=== PATIENT | female | born 1995 | race Caucasian/White ===

== ENCOUNTER 2016-06-15 18:42 | Outpatient (CLI) | payer BC ==
[2016-06-15 19:44] LABS: APPEARANCE,URINE CLEAR; BILIRUBIN,URINE NEGATIVE (NEGATIVE); GLUCOSE, URINE NEGATIVE (NEGATIVE); KETONES,URINE NEGATIVE (NEGATIVE); LEUKOCYTE ESTERASE,URINE NEGATIVE (NEGATIVE); NITRITE,URINE NEGATIVE (NEGATIVE); PROTEIN,URINE NEGATIVE (NEGATIVE); URINE SPECIFIC GRAVITY 1.019
[2016-06-15 19:56] LABS: AMNISURE (ROM) NEGATIVE (NEGATIVE)
[2016-06-15 19:59] LABS: URINE BARBITURATES SCREEN NEGATIVE; URINE METHADONE SCREEN NEGATIVE; URINE OPIATES LOW NEGATIVE; URINE PHENCYCLIDINE SCREEN NEGATIVE
--- NOTE | 2016-06-15 20:01 | L&D Flow Sheet ---
LD Flowsheet Datetime Report Generated by CPN: 06/15/2016 20:00 Datetime: 06/15/2016 19:58 I/O Interventions: Clear Liquids Given (Crystal Rudy, RN) Datetime: 06/15/2016 19:50 Uterine Activity Monitor Mode: External; Palpation (Crystal Rudy, RN) Frequency (min): 1 (Crystal Vernon, RN) Quality: Mild (Crystal Vernon, RN) Duration (sec): 50 (Crystal Vernon, RN) Resting Tone (Palpate): Relaxed (Crystal Rudy, RN) Contraction Comments: Pt reports most pain is in her back (Crystal Vernon, RN) Assessment A Monitor Mode: External US (Crystal Rudy, RN) FHR Baseline Rate : 145 (Crystal Rudy, RN) Variability: Moderate 6-25 bpm (Crystal Rudy, RN) Accelerations: 15X15 (Crystal Vernon, RN) Decelerations: None (Crystal Rudy, RN) Datetime: 06/15/2016 19:44 NBP Sys/Yanique/Mean (mmHg): 103 (QS system process) : 59 (QS system process) : 78 (QS system process) Pulse: 96 (QS system process) LaborFlag: OB Triage (QS system process) Datetime: 06/15/2016 19:41 I/O Interventions: Up to BR (Crystal Vernon, RN) Datetime: 06/15/2016 19:36 Pain Pain Scale: 4 (Crystal Rudy, RN) Pain Presence: Intermittent (Crystal Rudy, RN) Pain Type: Sharp; Stabbing; Ache (Crystal Rudy, RN) Pain Location: Abdomen; Back; Perineum (Crystal Vernon, RN) Pain Goal: 1 (Crystal Vernon, RN) Pain Relief Measures: Comfort Measures (Crystal Rudy, RN) Pain Coping: Talking Through Contractions (Crystal Rudy, RN) Vaginal Bleeding: None (Crystal Rudy, RN) Maternal Assessment Level of Consciousness: Fully Conscious (Crystal Rudy, RN) DTR's/Clonus: DTRs 1+; No Clonus (Crystal Rudy, RN) Headache: Denies (Crystal Rudy, RN) Breath Sounds, Left: Clear and Equal (Crystal Rudy, RN) Breath Sounds, Right: Clear and Equal (Crystal Rudy, RN) Nausea/Vomiting: Denies (Crystal Rudy, RN) RUQ Epigastric Pain: Denies (Crystal Rudy, RN) LaborFlag: OB Triage (QS system process) Datetime: 06/15/2016 19:23 Vital Signs Stage of : OB Triage (Shana Hernandez, RN) Vaginal Exam Dilatation (cm): 2.5 (Shana Hernandez RN) Effacement (%): 50 (Shana Hernandez RN) Station: -2 (Shana Hernandez RN) Exam by: Dr. Rodríguez (Shana Hernandez RN) Vaginal Bleeding: None (Shana Hernandez RN) Cervix, Consistency: Soft (Shana Hernandez RN) Cervix, Position: Midposition (Shana Hernandez RN) Provider Reviewed Strip: Yes (Shana Hernandez RN) Strip Reviewed by: Oniel hernandez RN (Shana Hernandez RN) Communication Communication: Provider at Bedside (Crystal Vernon, RN) Provider Notified (Name): Marcos (Crystal Vernon, RN) Notification Reason: Membrane Status (Crystal Vernon, RN) Datetime: 06/15/2016 19:17 Patient Care Patient Position/Activity: Supine (Crystal Rudy, RN)
== END 2016-06-15 21:40 | disposition home or self-care (01) ==
LOC: LC 18:42
PROVIDERS: ATTEND Student in an Organized Health Care Education/Training Program
PROC: 4A1HXCZ Monitoring of Products of Conception, Cardiac Rate, External Approach (ICD-10-PCS; principal; 2016-06-15)
DX: O47.03 False labor before 37 completed weeks of gestation, third trimester (principal); Z3A.36 36 weeks gestation of pregnancy
CPT/HCPCS: 59025; 84112; 81005; 80307; 76815; Q0114

== ENCOUNTER 2016-06-17 04:40 | Outpatient (CLI) | payer BC, MEDICAID ==
--- NOTE | 2016-06-17 04:50 | Non Stress Test Report ---
Non Stress Test Datetime Report Generated by CPN: 06/17/2016 04:50 DEMOGRAPHIC Test Number: 1 EGA NST: 37.4 INDICATION Indication for Study: Ordered by Provider VITAL SIGNS Pulse - NST: 96 RESP - NST: 18 NBPSYS NST: 103 NBPDIA NST: 59 MONITORING Monitor Explained: Monitor Explained; Test Explained; Patient Verbalized Understanding Time on Monitor: 06/15/2016 19:09 Time off Monitor: 06/15/2016 21:30 NST Duration: 141 NST INTERVENTIONS NST Interventions: PO Hydration; Oxytocin Challenge Test Physician Notified NST: Rodríguez BABY A: [id number] BABY A Movement : Present Contraction Frequency : 5-10 FHR Baseline : 130 Accelerations : 15X15 Decelerations : None Variability : Moderate 6-25bpm NST Review: Meets Criteria for Reactive NST NST Review and Verified By : Todd Ramos RN NST Results: Reactive NST REPORT Report Trigger: Send Report
[2016-06-17 05:14] LABS: APPEARANCE,URINE SLIGHTLY-CLOUDY; BILIRUBIN,URINE NEGATIVE (NEGATIVE); GLUCOSE, URINE NEGATIVE (NEGATIVE); KETONES,URINE NEGATIVE (NEGATIVE); LEUKOCYTE ESTERASE,URINE TRACE (NEGATIVE); NITRITE,URINE NEGATIVE (NEGATIVE); PROTEIN,URINE NEGATIVE (NEGATIVE); URINE SPECIFIC GRAVITY 1.012; UROBILINOGEN,URINE NEGATIVE mg/dL (<2.0)
[2016-06-17 05:30] LABS: URINE BARBITURATES SCREEN NEGATIVE; URINE METHADONE SCREEN NEGATIVE; URINE OPIATES LOW NEGATIVE; URINE PHENCYCLIDINE SCREEN NEGATIVE
[2016-06-17] MEDS ORDERED: HYDROXYZINE PAMOATE 50 MG CAPSULE ONE (06:11)
--- NOTE | 2016-06-17 06:26 | Non Stress Test Report ---
Non Stress Test Datetime Report Generated by CPN: 06/17/2016 06:26 DEMOGRAPHIC Test Number: 2 EGA NST: 37.6 INDICATION Indication for Study: Ordered by Provider Indication for Study (NST) Other: LC MONITORING Monitor Explained: Monitor Explained; Test Explained; Patient Verbalized Understanding Time on Monitor: 06/17/2016 05:00 Time off Monitor: 06/17/2016 05:54 NST Duration: 54 NST INTERVENTIONS NST Interventions: PO Hydration; Reposition Patient Physician Notified NST: Dr. Cardoza BABY A Movement : Present Contraction Frequency : 10-10.5 FHR Baseline : 130 Accelerations : 15X15 Decelerations : None Variability : Moderate 6-25bpm NST Review: Meets Criteria for Reactive NST NST Review and Verified By : Jose Roberto Esqueda RN NST Results: Reactive NST REPORT Report Trigger: Send Report
[2016-06-17] MEDS ORDERED: HYDROXYZINE PAMOATE 50 MG CAPSULE PO ONE (06:30)
== END 2016-06-17 06:19 | disposition home or self-care (01) ==
LOC: LC 04:40
PROVIDERS: ATTEND Obstetrics & Gynecology
PROC: 4A1HXCZ Monitoring of Products of Conception, Cardiac Rate, External Approach (ICD-10-PCS; principal; 2016-06-17)
DX: O47.1 False labor at or after 37 completed weeks of gestation (principal); Z3A.37 37 weeks gestation of pregnancy
CPT/HCPCS: 59025; 80307; 81005

== ENCOUNTER 2016-06-17 10:11 | Inpatient (IN) | payer BC, MEDICAID ==
[2016-06-17] MEDS ORDERED: OXYTOCIN/NORMAL SALINE 1,000 ML IV PRN ×2 (10:29→15:57)
[2016-06-17] MEDS ORDERED: RINGERS SOLUTION,LACTATED 300 ML IV ONE (10:29)
[2016-06-17] MEDS ORDERED: RINGERS SOLUTION,LACTATED 1,000 ML IV PRN (10:29)
[2016-06-17] MEDS ORDERED: MISOPROSTOL 0.2 MG TABLET ONE (10:30)
[2016-06-17] MEDS ORDERED: OXYTOCIN/NORMAL SALINE 20 UNIT/1,000 ML RTUINJ ONE (10:30)
[2016-06-17] MEDS ORDERED: LIDOCAINE 1% INJ-PF (10 MG/ML) 30 ML SDV ONE (10:30)
[2016-06-17 10:54] LABS: APPEARANCE,URINE SLIGHTLY-CLOUDY; BILIRUBIN,URINE NEGATIVE (NEGATIVE); GLUCOSE, URINE NEGATIVE (NEGATIVE); KETONES,URINE NEGATIVE (NEGATIVE); LEUKOCYTE ESTERASE,URINE TRACE (NEGATIVE); NITRITE,URINE NEGATIVE (NEGATIVE); PROTEIN,URINE NEGATIVE (NEGATIVE); URINE SPECIFIC GRAVITY 1.017; UROBILINOGEN,URINE NEGATIVE mg/dL (<2.0)
[2016-06-17 10:59] LABS: ABSOLUTE LYMPHOCYTES (AUTO) 1.4 10^3/uL (0.5-4.7); ABSOLUTE MONOCYTES (AUTO) 0.3 10^3/uL (0.1-1.4); ABSOLUTE NEUT (AUTO) 13.8 10^3/uL (1.7-8.2); HEMATOCRIT 30.6 % (36.0-47.0); HEMOGLOBIN 10.4 g/dL (12.0-15.5); HGB HCT DIFFERENCE 0.6; LYMPHOCYTES % (AUTO) 8.7 % (13-45); MEAN CORPUSCULAR HGB CONC 34.1 g/dL (32.0-36.0); MEAN CORPUSCULAR VOLUME 97 fl (80-97); RED BLOOD COUNT 3.16 10^6/uL (3.72-5.28); RED CELL DISTRIBUTION WIDTH 13.6 % (11.5-14.0); SEGMENTED NEUTROPHILS % (AUTO) 89.3 % (42-78); WHITE BLOOD COUNT 15.5 10^3/uL (4.0-10.5)
[2016-06-17 11:19] LABS: URINE BARBITURATES SCREEN NEGATIVE; URINE METHADONE SCREEN NEGATIVE; URINE OPIATES LOW NEGATIVE; URINE PHENCYCLIDINE SCREEN NEGATIVE
[2016-06-17] MEDS ORDERED: FENTANYL/BUPIVACAINE/NS/PF 200 MCG/100 ML RTUINJ EPI ONE (11:53)
[2016-06-17] MEDS ORDERED: BUPIVACAINE HCL 0.25 % INJ/PF (2.5 MG/1 ML) 30 ML VIAL ONE (11:53)
[2016-06-17] MEDS ORDERED: EPHEDRINE SULFATE INJ 50 MG/1 ML AMPULE ONE (11:53)
--- NOTE | 2016-06-17 12:00 | L&D Flow Sheet ---
LD Flowsheet Datetime Report Generated by CPN: 06/17/2016 12:00 Datetime: 06/17/2016 11:30 Monitor Mode: External; Palpation (Oralia Yomi, RNC) Frequency (min): 3-5 (Oralia Yomi, RNC) Quality: Moderate to Strong (Oralia Yomi, RNC) Duration (sec): 50-80 (Oralia Yomi, RNC) Duration Criteria: Less than Two 120 Second Contractions (Oralia Yomi, RNC) Pattern: Normal: <= 5 Contractions in 10 Minutes (Oralia Yomi, RNC) Resting Tone (Palpate): Relaxed (Oralia Yomi, RNC) Monitor Mode: External US (Oralia Yomi, RNC) FHR Baseline Rate : 135 (Oralia Yomi, RNC) Variability: Moderate 6-25 bpm (Oralia Yomi, RNC) Accelerations: 15X15 (Oralia Yomi, RNC) Decelerations: None (Oralia Yomi, RNC) Datetime: 06/17/2016 11:16 Dilatation (cm): 8.0 (Oralia Celaya, KELLYC) Effacement (%): 90 (Oralia Celaya, RNC) Exam by: Emeli Caldwell CNM (Oralia Celaya, C) Membrane Status: Ruptured (Oralia Celaya, RNC) Membranes Rupture Method: Artificial (Oralia Celaya, RNC) Amniotic Fluid Color: Clear (Oralia Celaya, RNC) Amniotic Fluid Amount: Moderate (Oralia Celaya, RNC) Datetime: 06/17/2016 11:00 Monitor Mode: External (Rosa Carballo RN) Frequency (min): 2.5-6 (Rosa Carballo, RN) Quality: Moderate (Rosa Carballo RN) Duration (sec): 60 (Rosa Carballo RN) Resting Tone (Palpate): Relaxed (Rosa Carballo RN) Monitor Mode: External US (Rosa Carballo RN) FHR Baseline Rate : 140 (Rosa Carballo RN) Variability: Moderate 6-25 bpm (Rosa Carballo RN) Accelerations: 15X15 (Rosa Marlatt, RN) Decelerations: None (Rosa Marlatt, RN) Datetime: 06/17/2016 10:30 Monitor Mode: External (Rosa Rhodalatt, RN) Frequency (min): 4.5-5.5 (Rosa Marlatt, RN) Quality: Moderate (Rosa Marlatt, RN) Duration (sec): 50 (Rosa Marlatt, RN) Resting Tone (Palpate): Relaxed (Rosa Rhodalatt, RN) Monitor Mode: External US (Rosa Marlatt, RN) FHR Baseline Rate : 140 (Rosa Marlatt, RN) Variability: Moderate 6-25 bpm (Rosa Marlatt, RN) Accelerations: 15X15 (Rosa Marlatt, RN) Decelerations: None (Rosa Marlatt, RN) Datetime: 06/17/2016 10:15 IV/Blood Work: IV Started; IV Bolus Started; New IV Bag Hung (Alyssa Vazquez RN) Communication: RN at Bedside (Alyssa Vazquez RN) Datetime: 06/17/2016 10:12 NBP Sys/Yanique/Mean (mmHg): 115 (QS system process) : 74 (QS system process) : 90 (QS system process) Pulse: 81 (QS system process) Respirations: 17 (RAMON Bernabe) Pain Scale: 4 (RAMON Bernabe) Pain Presence: Intermittent (RAMON Bernabe) Pain Type: Cramping; Contraction (RAMON Bernabe) Pain Location: Abdomen; Back (RAMON Bernabe) Pain Coping: Talking Through Contractions; Breathing Through Contractions; Requesting Pain Medication or Epidural (RAMON Bernabe) Level of Consciousness: Fully Conscious (RAMON Bernabe) DTR's/Clonus: DTRs 2+; No Clonus (RAMON Bernabe) Headache: Denies (RAMON Bernabe) Breath Sounds, Left: Clear and Equal (RAMON Bernabe) Breath Sounds, Right: Clear and Equal (RAMON Bernabe) Nausea/Vomiting: Denies (RAMON Bernabe) RUQ Epigastric Pain: Denies (RAMON Bernabe) Instructional Method: Verbal; Patient Instructed (RAMON Bernabe) Plan of Care: Plan of Care Discussed; Vaginal Delivery; Labor (RAMON Bernabe) Unit Routine: [facility] to Room; Call Stout; Unit Personnel; Consents Signed; Monitoring; Bathroom Privileges; Routine Time Outs; Medications (RAMON Bernabe) Labor/Induction: Labor Stages; Artificial Rupture of Membranes; Activity (RAMON Bernabe) Pain Management: IV Narcotics; Epidural; Pain Scale/Goals; Comfort Measures (RAMON Bernabe) Medications: IV Narcotics (RAMON Bernabe) LaborFlag: OB Triage (QS system process) Datetime: 06/17/2016 06:16 Antiemetics/Antacids: Vistaril (mg) @ (Annotations: 50) (Mary Osorio RN) Patient Care Comments: Discussed term signs and symptoms with patient and spouse; both verbalized understanding; patient to keep appointment in office today (Mary Osorio RN) Datetime: 06/17/2016 06:03 Communication: RN Reviewed Strip; Provider Orders Received; Report Given to @ Dr. Cardoza (Mary Osorio RN) Communication Comments: Informed Dr. Cardoza of patient's complaint, history, urine results, pain level and FHR/Contractions; orders received for Vistaril 50 mg and discharge home (Mary Osorio RN) Datetime: 06/17/2016 05:45 Monitor Mode: External; Palpation (Mary Field, RN) Frequency (min): 10-10.5 (Mary Field, RN) Quality: Mild/Moderate (Mary Field, RN) Duration (sec): 60-80 (Mary Field, RN) Resting Tone (Palpate): Relaxed (Mary Field, RN) Monitor Mode: External US (Mary Field, RN) FHR Baseline Rate : 130 (Mary Field, RN) Variability: Moderate 6-25 bpm (Mary Field, RN) Accelerations: 15X15 (Mary Field, RN) Decelerations: None (Mary Field, RN) Datetime: 06/17/2016 05:34 NBP Sys/Yanique/Mean (mmHg): 93 (QS system process) : 54 (QS system process) : 68 (QS system process) Pulse: 62 (QS system process) LaborFlag: OB Triage (QS system process) Datetime: 06/17/2016 05:18 Temperature (F): 97.6 (Mary Field, RN) Temperature (C): 36.4 (QS system process) LaborFlag: OB Triage (QS system process) Datetime: 06/17/2016 05:15 Monitor Mode: External; Palpation (Mary Field, RN) Frequency (min): x1 (Mary Field, RN) Quality: Mild/Moderate (Mary Field, RN) Duration (sec): 80 (Mary Field, RN) Resting Tone (Palpate): Relaxed (Mary Field, RN) Monitor Mode: External US (Mary Field, RN) FHR Baseline Rate : 125 (Mary Field, RN) Variability: Moderate 6-25 bpm (Mary Field, RN) Accelerations: 15X15 (Mary Field, RN) Decelerations: None (Mary Field, RN) Datetime: 06/17/2016 05:10 Dilatation (cm): 2.0 (Mary Osorio RN) Effacement (%): 50 (Mary Osorio RN) Station: -2 (Mary Osorio RN) Exam by: KELLY Terrell (Mary Osorio RN) Datetime: 06/17/2016 05:04 Frequency (min): Q4-5 MINUTES (Mary Osorio RN) Pain Scale: 5 (Mary Osorio RN) Pain Presence: Intermittent (Mary Osorio RN) Pain Type: Cramping; Contraction (Mary Osorio RN) Pain Location: Abdomen; Back (Mary Osorio RN) Pain Goal: 0 (Mary Osorio RN) Pain Relief Measures: Comfort Measures (Mary Osorio RN) Pain Coping: Talking Through Contractions; Breathing Through Contractions (Mary Osorio RN) Vaginal Bleeding: None (Mary Osorio RN) Level of Consciousness: Fully Conscious (Mary Osorio RN) DTR's/Clonus: DTRs 2+; No Clonus (Mary Osorio RN) Headache: Denies (Mary Osorio RN) Breath Sounds, Left: Clear and Equal (Mary Osorio RN) Breath Sounds, Right: Clear and Equal (Mayr Osorio RN) Nausea/Vomiting: Denies (aMry Osorio RN) RUQ Epigastric Pain: Denies (Mary Osorio RN) Instructional Method: Verbal; Patient Instructed; Family/Support Person Instructed; Verbalized Understanding (Mary Osorio RN) Unit Routine: [facility] to Room; Call Stout; Bed; Visiting Policy; Waiting Areas; Phone/Cell Phone Use; Unit Personnel; Handwashing; Flu/Illness Precautions; Monitoring; Safety/Fall Risk Prevention; Bathroom Privileges (Mary Osorio RN) LaborFlag: OB Triage (QS system process) Datetime: 06/17/2016 05:03 NBP Sys/Yanique/Mean (mmHg): 109 (QS system process) : 64 (QS system process) : 80 (QS system process) Pulse: 69 (QS system process) LaborFlag: OB Triage (QS system process)
--- NOTE | 2016-06-17 14:00 | L&D Flow Sheet ---
LD Flowsheet Datetime Report Generated by CPN: 06/17/2016 14:00 Datetime: 06/17/2016 13:55 NBP Sys/Yanique/Mean (mmHg): 120 (QS system process) : 68 (QS system process) : 87 (QS system process) Pulse: 91 (QS system process) LaborFlag: OB Triage (QS system process) Datetime: 06/17/2016 13:40 NBP Sys/Yanique/Mean (mmHg): 106 (QS system process) : 67 (QS system process) : 81 (QS system process) Pulse: 93 (QS system process) LaborFlag: OB Triage (QS system process) Datetime: 06/17/2016 13:30 Pitocin (milliunit): Pitocin Started (milliunits) @ 4 (Oralia Yomi, RNC) Datetime: 06/17/2016 13:26 NBP Sys/Yanique/Mean (mmHg): 111 (QS system process) : 60 (QS system process) : 80 (QS system process) Pulse: 108 (QS system process) LaborFlag: OB Triage (QS system process) Datetime: 06/17/2016 13:12 NBP Sys/Yanique/Mean (mmHg): 114 (QS system process) : 53 (QS system process) : 77 (QS system process) Pulse: 93 (QS system process) LaborFlag: OB Triage (QS system process) Datetime: 06/17/2016 13:04 Pushing Position: Pushing with Contractions (Oralia Celaya RN) Datetime: 06/17/2016 13:00 Dilatation (cm): 10.0 (RAMON Bernabe) Effacement (%): 100 (RAMON Bernabe) Station: 2 (RAMON Bernabe) Exam by: Emeli Caldwell CNM (RAMON Bernabe) Datetime: 06/17/2016 12:55 NBP Sys/Yanique/Mean (mmHg): 113 (QS system process) : 67 (QS system process) : 84 (QS system process) Pulse: 87 (QS system process) LaborFlag: OB Triage (QS system process) Datetime: 06/17/2016 12:45 Monitor Mode: External; Palpation (Oralia Yomi, RNC) Frequency (min): 2.5-3 (Oralia Yomi, RNC) Quality: Mild (Oralia Yomi, RNC) Duration (sec): 60-90 (Oralia Yomi, RNC) Duration Criteria: Less than Two 120 Second Contractions (Oralia Yomi, RNC) Pattern: Normal: <= 5 Contractions in 10 Minutes (Oralia Yomi, RNC) Resting Tone (Palpate): Relaxed (Oralia Yomi, RNC) Monitor Mode: External US (Oralia Yomi, RNC) FHR Baseline Rate : 135 (Oralia Yomi, RNC) Variability: Moderate 6-25 bpm (Oralia Yomi, RNC) Accelerations: 15X15 (Oralia Yomi, RNC) Decelerations: None (Oralia Yomi, RNC) Datetime: 06/17/2016 12:40 I/O Interventions: Flynn Cath Inserted (Oralia Yomi, RNC) Datetime: 06/17/2016 12:39 NBP Sys/Yanique/Mean (mmHg): 109 (QS system process) : 67 (QS system process) : 81 (QS system process) Pulse: 78 (QS system process) LaborFlag: OB Triage (QS system process) Datetime: 06/17/2016 12:38 NBP Sys/Yanique/Mean (mmHg): 113 (QS system process) : 67 (QS system process) : 84 (QS system process) Pulse: 87 (QS system process) LaborFlag: OB Triage (QS system process) Datetime: 06/17/2016 12:37 NBP Sys/Yanique/Mean (mmHg): 107 (QS system process) : 63 (QS system process) : 80 (QS system process) Pulse: 96 (QS system process) LaborFlag: OB Triage (QS system process) Datetime: 06/17/2016 12:36 NBP Sys/Yanique/Mean (mmHg): 114 (QS system process) : 77 (QS system process) : 90 (QS system process) Pulse: 93 (QS system process) LaborFlag: OB Triage (QS system process) Datetime: 06/17/2016 12:35 NBP Sys/Yanique/Mean (mmHg): 113 (QS system process) : 68 (QS system process) : 85 (QS system process) Pulse: 97 (QS system process) LaborFlag: OB Triage (QS system process) Datetime: 06/17/2016 12:34 NBP Sys/Yanique/Mean (mmHg): 107 (QS system process) : 61 (QS system process) : 78 (QS system process) Pulse: 87 (QS system process) LaborFlag: OB Triage (QS system process) Datetime: 06/17/2016 12:33 NBP Sys/Yanique/Mean (mmHg): 104 (QS system process) : 60 (QS system process) : 75 (QS system process) Pulse: 88 (QS system process) LaborFlag: OB Triage (QS system process) Datetime: 06/17/2016 12:32 NBP Sys/Yanique/Mean (mmHg): 105 (QS system process) : 60 (QS system process) : 76 (QS system process) Pulse: 82 (QS system process) LaborFlag: OB Triage (QS system process) Datetime: 06/17/2016 12:31 NBP Sys/Yanique/Mean (mmHg): 108 (QS system process) : 63 (QS system process) : 79 (QS system process) Pulse: 82 (QS system process) LaborFlag: OB Triage (QS system process) Datetime: 06/17/2016 12:30 Monitor Mode: External; Palpation (Oralia Celaya RNC) Frequency (min): 3-4 (Oralia Yomi, RNC) Quality: Moderate to Strong (Oralia Oymi, RNC) Duration (sec): 60-90 (Oralia Yomi, RNC) Duration Criteria: Less than Two 120 Second Contractions (Oralia Yomi, RNC) Pattern: Normal: <= 5 Contractions in 10 Minutes (Oralia Yomi, RNC) Resting Tone (Palpate): Relaxed (Oralia Yomi, RNC) Monitor Mode: External US (Oralia Yomi, RNC) FHR Baseline Rate : 135 (Oralia Yomi, RNC) Variability: Moderate 6-25 bpm (Oralia Yomi, RNC) Accelerations: 15X15 (Oralia Yomi, RNC) Decelerations: None (Oralia Yomi, RNC) Datetime: 06/17/2016 12:27 Pulse: 83 (QS system process) SpO2 (%): 100 (QS system process) LaborFlag: OB Triage (QS system process) Datetime: 06/17/2016 12:25 Procedure Verify: Correct Patient Identity; Correct Side and Site are Marked; Accurate Procedure Consent Form; Agreement on Procedure to be Done; Correct Patient Position; Relevant Images and Results are Properly Labeled and Displayed; Addressed Need to Administer Antibiotics or Fluids for Irrigation; Safety Precautions Based on Patient History or Medication Use (RAMON Bernabe) Anesthesia Plans: Epidural (RAMON Bernabe) Datetime: 06/17/2016 12:15 IV/Blood Work: New IV Bag Hung; IV Bag Number @ 3 (RAMON Bernabe) Datetime: 06/17/2016 12:00 Monitor Mode: External; Palpation (RAMON Bernabe) Frequency (min): 5-6 (RAMON Bernabe) Quality: Moderate to Strong (RAMON Bernabe) Duration (sec): 50-80 (RAMON Bernabe) Duration Criteria: Less than Two 120 Second Contractions (RAMON Bernabe) Pattern: Normal: <= 5 Contractions in 10 Minutes (RAMON Bernabe) Resting Tone (Palpate): Relaxed (RAMON Bernabe) Monitor Mode: External US (RAMON Bernabe) FHR Baseline Rate : 135 (RAMON Brenabe) Variability: Moderate 6-25 bpm (RAMON Bernabe) Accelerations: 15X15 (RAMON Bernabe) Decelerations: None (RAMON Bernabe)
[2016-06-17] MEDS ORDERED: PSEUDOEPHEDRINE HCL 30 MG TABLET PO PRN (15:57)
[2016-06-17] MEDS ORDERED: ACETAMINOPHEN 650 MG SUPP.RECT PR PRN (15:57)
[2016-06-17] MEDS ORDERED: NA PHOS,M-B/NA PHOS,DI-BA (ADULT) 133 ML ENEMA PR PRN (15:57)
[2016-06-17] MEDS ORDERED: DIBUCAINE 1% OINTMENT 28 GM TP PRN (15:57)
[2016-06-17] MEDS ORDERED: MAGNESIUM HYDROXIDE SUSP 30 ML UDCUP PO PRN (15:57)
[2016-06-17] MEDS ORDERED: ZOLPIDEM TARTRATE 5 MG TABLET PO PRN (15:57)
[2016-06-17] MEDS ORDERED: PROMETHAZINE HCL 25 MG SUPP.RECT PR PRN (15:57)
[2016-06-17] MEDS ORDERED: MEASLES,MUMPS&RUBELLA VACC/PF 0.5 ML VIAL SUBCUT PRN (15:57)
[2016-06-17] MEDS ORDERED: DIPH/PERTUSS(ACELL)/TETANUS VAC/PF 0.5 ML SYR (>=10YO) IM PRN (15:57)
[2016-06-17] MEDS ORDERED: PROMETHAZINE HCL 25 MG TABLET PO PRN (15:57)
[2016-06-17] MEDS ORDERED: GLYCERIN/WITCH HAZEL LEAF 1 EACH MED..PAD TP PRN (15:57)
[2016-06-17] MEDS ORDERED: BENZOCAINE/MENTHOL AEROSOL SPRAY 56 ML TOP PRN (15:57)
[2016-06-17] MEDS ORDERED: PROMETHAZINE HCL INJ 25 MG/1 ML VIAL IV PRN (15:57)
[2016-06-17] MEDS ORDERED: DIPHENHYDRAMINE HCL 25 MG CAPSULE PO PRN (15:57)
--- NOTE | 2016-06-17 16:37 | Delivery Summary ---
Del Sum A-C Datetime Report Generated by CPN: 06/17/2016 16:37 ADMISSION DATA Chief Complaint: Uterine Contractions Admission Impression: Term, Intrauterine Admit Provider Comments: 21 yo EDc (Annotations: Data stored by CP on behalf of user) DELIVERY PERSONNEL Delivery Doctor:: Addis Caldwell CNM Labor and Delivery Nurse:: Oralia Celaya RN Nursery Nurse:: Negar Muhammad RN Human Capital Consultant/BONE GRINDER: Pita Wooten CNA II MATERNAL INFORMATION Delivery Anesthesia: Epidural Medications After Delivery: Pitocin Bolus-Please Comment; Pitocin Drip 20 Units/1000ml NSS Estimated Blood Loss (ml): 250 Provider Comments: poor maternal effort with pushing pt having a difficult time pushing effectively repositioned to right tilt with hiproll delivery of vfi bulb OA to YAMILA suctioned on perinuem infant to abdomen tactile stimulation elicits spontaneous cry cord clamped cut by mother of pt 3vc placenta delivered in lambert fashion noted small bleeds on sac- placenta to pathology EBL 250cc 1st degree perineal laceration hemostasis achieved LABOR SUMMARY EDC: 07/02/2016 00:00 No. Babies in Womb: 1 Attempted: No Labor Anesthesia: Epidural LABOR INFORMATION Reason for Induction: Not Applicable Onset of Labor: 06/17/2016 06:00 Complete Dilatation: 06/17/2016 13:00 Oxytocin: Augmentation Group B Beta Strep: Negative Antibiotics # of Doses: 0 Steroids Given: None Reason Steroids Not Administered: Not Applicable MEMBRANES Membranes Rupture Method: Artificial Rupture of Membranes: 06/17/2016 11:16 Length of Rupture (hr): 2.28 Amniotic Fluid Color: Clear Amniotic Fluid Amount: Moderate STAGES OF LABOR Stage 1 hr: 7 Stage 1 min: 0 Stage 2 hr: 0 Stage 2 min: 33 Stage 3 hr: 0 Stage 3 min: 3 Total Time in Labor hr: 7 Total Time in Labor min: 36 VAGINAL DELIVERY Episiotomy: None Laceration Extension: First Degree Laceration Type: Perineal Laceration Repair: Yes Laceration Repair Note: repaired in usual fashion under epidural Sponge Count Correct: N/A Sharps Count Correct: N/A CSECTION DELIVERY Primary Indication: N/A Secondary Indication: N/A CSection Incidence: N/A Labor: N/A Elective: N/A CSection Incision: N/A BABY A INFORMATION Infant Delivery Date/Time: 06/17/2016 13:33 Method of Delivery: Vaginal Born in Route : No : N/A Forceps: N/A Vacuum Extraction: N/A Shoulder Dystocia : No PRESENTATION/POSITION BABY A Presentation: Cephalic Cephalic Presentation: Vertex Vertex Position: Left Occipital Anterior Breech Presentation: N/A PLACENTA INFORMATION BABY A Placenta Delivery Time : 06/17/2016 13:36 Placenta Method of Delivery: Spontaneous Placenta Status: Delivered SCORES BABY A Heart Rate 1 min: >100 bpm Resp Effort 1 min: Good Cry Reflex Irritability 1 min: Cough or Sneeze or Pulls Away Muscle Tone 1 min: Active Motion Color 1 min: Blue/Pale Resuscitation Effort 1 min: Tactile Stimulation SCORE 1 MIN: 8 Heart Rate 5 min: >100 bpm Resp Effort 5 min: Good Cry Reflex Irritability 5 min: Cough or Sneeze or Pulls Away Muscle Tone 5 min: Active Motion Color 5 min: Body [place], Extremities Blue Resuscitation Effort 5 min: N/A SCORE 5 MIN: 9 Resuscitation Effort 10 min: N/A INFORMATION BABY A Gestational Age at Delivery: 37.6 Gestational Status: Early Term- 37- 38.6 Weeks Outcome : Liveborn Condition : Stable Infant Sex: Male IDENTIFICATION BABY A Verification Date/Time: 06/17/2016 13:59 ID Band Number: [id number] Mother's Name Verified: Yes Infant RN Verifying : INDRA GARZA RN Additional Verifying Personnel: Hollis TILLMAN RN WEIGHT/LENGTH BABY A Birthweight (gm): 2865 Infant Weight (lb): 6 Infant Weight (oz): 5 Length (in): 19.00 Infant Length (cm): 48.26 CORD INFORMATION BABY A No. Cord Vessels: 3 Nuchal Cord : N/A Cord Blood Taken: Yes-For Eval (Mom's Blood Type - or O+) Infant Suction: Mouth; Nose ASSESSMENT BABY A Infant Complications: None Physical Findings at Delivery: Within Normal Limits Respirations: Appears Normal Skin to Skin: Yes Notched Blade Loader/ALS Called : No Care By: Jose Roberto NAVARRO Transferred To: Remains with Mother BABY B INFORMATION : N/A SIGNATURES Assignment: Jarrett Rachel MD Signature: with User ID: Stephon : with User ID: [email or web address]
[2016-06-17] MEDS: ACETAMINOPHEN 325 MG TABLET PO PRN (17:33)
[2016-06-17] MEDS: DOCUSATE SODIUM 100 MG CAPSULE PO SCH (17:34)
[2016-06-17] MEDS: FERROUS SULFATE 325 MG TABLET PO SCH (17:35)
--- NOTE | 2016-06-17 19:00 | L&D Flow Sheet ---
LD Flowsheet Datetime Report Generated by CPN: 06/17/2016 19:00 Datetime: 06/17/2016 15:40 NBP Sys/Yanique/Mean (mmHg): 111 (QS system process) : 58 (QS system process) : 78 (QS system process) Pulse: 78 (QS system process) Datetime: 06/17/2016 15:25 NBP Sys/Yanique/Mean (mmHg): 115 (QS system process) : 64 (QS system process) : 82 (QS system process) Pulse: 96 (QS system process) Datetime: 06/17/2016 15:10 Stage of : Recovery (Oralia Yomi, RNC) NBP Sys/Yanique/Mean (mmHg): 108 (QS system process) : 64 (QS system process) : 80 (QS system process) Pulse: 93 (QS system process) Respirations: 17 (Oralia Yomi, RNC) Pain Scale: 0 (Oralia Yomi, RNC) Datetime: 06/17/2016 14:55 Stage of : Recovery (Oralia Yomi, RNC) NBP Sys/Yanique/Mean (mmHg): 113 (QS system process) : 67 (QS system process) : 85 (QS system process) Pulse: 100 (QS system process) Respirations: 16 (Oralia Yomi, RNC) Pain Scale: 0 (Oralia Yomi, RNC) Datetime: 06/17/2016 14:40 Stage of : Recovery (Oralia Yomi, RNC) NBP Sys/Yanique/Mean (mmHg): 112 (QS system process) : 56 (QS system process) : 76 (QS system process) Pulse: 69 (QS system process) Respirations: 17 (Oralia Yomi, RNC) Pain Scale: 0 (Orlaia Yomi, RNC) Datetime: 06/17/2016 14:10 Stage of : Recovery (Oralia Yomi, RNC) NBP Sys/Yanique/Mean (mmHg): 110 (QS system process) : 66 (QS system process) : 82 (QS system process) Pulse: 76 (QS system process) Respirations: 16 (Oralia Yomi, RNC) Pain Scale: 0 (Oralia Yomi, RNC) Datetime: 06/17/2016 13:55 Stage of : Recovery (Oralia Celaya, RNC) NBP Sys/Yanique/Mean (mmHg): 120 (QS system process) : 68 (QS system process) : 87 (QS system process) Pulse: 91 (QS system process) Respirations: 16 (Oralia Yomi, RNC) Pain Scale: 0 (Oralia Yomi, RNC) Datetime: 06/17/2016 13:40 Stage of : Recovery (Oralia Celaya, RNC) NBP Sys/Yanique/Mean (mmHg): 106 (QS system process) : 67 (QS system process) : 81 (QS system process) Pulse: 93 (QS system process) Respirations: 17 (Oralia Yomi, RNC) Temperature (F): 98.0 (Oralia Yomi, RNC) Temperature (C): 36.7 (QS system process) Temperature Route: Oral (Oralia Yomi, RNC) Pain Scale: 0 (Oralia Yomi, RNC) Datetime: 06/17/2016 13:30 Monitor Mode: External; Palpation (Oralia Yomi, RNC) Frequency (min): 2-2.5 (Oralia Yomi, RNC) Quality: Moderate to Strong (Oralia Yomi, RNC) Duration (sec): 90-120 (Oralia Yomi, RNC) Duration Criteria: Less than Two 120 Second Contractions (Oralia Yomi, RNC) Pattern: Normal: <= 5 Contractions in 10 Minutes (Oralia Yomi, RNC) Resting Tone (Palpate): Relaxed (Oralia Yomi, RNC) Monitor Mode: External US (Oralia Yomi, RNC) FHR Baseline Rate : 135 (Oralia Yomi, RNC) Variability: Moderate 6-25 bpm (Oralia Yomi, RNC) Accelerations: 15X15 (Oralia Yomi, RNC) Decelerations: None (Oralia Yomi, RNC) Pitocin (milliunit): Pitocin Started (milliunits) @ 4 (Oralia Yomi, RNC) Datetime: 06/17/2016 13:26 NBP Sys/Yanique/Mean (mmHg): 111 (QS system process) : 60 (QS system process) : 80 (QS system process) Pulse: 108 (QS system process) LaborFlag: OB Triage (QS system process) Datetime: 06/17/2016 13:15 Monitor Mode: External; Palpation (Oralia Yomi, RNC) Frequency (min): 2.5-4 (Oralia Yomi, RNC) Quality: Moderate to Strong (Oralia Yomi, RNC) Duration (sec): 60-90 (Oralia Yomi, RNC) Duration Criteria: Less than Two 120 Second Contractions (Oralia Yomi, RNC) Pattern: Normal: <= 5 Contractions in 10 Minutes (Oralia Yomi, RNC) Resting Tone (Palpate): Relaxed (Oralia Yomi, RNC) Monitor Mode: External US (Oralia Yomi, RNC) FHR Baseline Rate : 140 (Oralia Yomi, RNC) Variability: Moderate 6-25 bpm (Oralia Yomi, RNC) Accelerations: 15X15 (Oralia Yomi, RNC) Decelerations: None (Oralia Yomi, RNC) Pushing Position: Pushing with Contractions (Oralia Yomi, RNC) Pushing Progress: Descent with Pushing (Oralia Yomi, RNC) Datetime: 06/17/2016 13:12 NBP Sys/Yanique/Mean (mmHg): 114 (QS system process) : 53 (QS system process) : 77 (QS system process) Pulse: 93 (QS system process) LaborFlag: OB Triage (QS system process) Datetime: 06/17/2016 13:04 Pushing Position: Pushing with Contractions (Oralia Celaya, RNC) Datetime: 06/17/2016 13:00 Monitor Mode: External; Palpation (Oralia Celaya, RNC) Frequency (min): 2.5-4 (Oralia Celaya, RNC) Quality: Moderate to Strong (Oralia Yomi, RNC) Duration (sec): 60-90 (Oralia Yomi, RNC) Duration Criteria: Less than Two 120 Second Contractions (Oralia Celaya, RNC) Pattern: Normal: <= 5 Contractions in 10 Minutes (Oralia Yomi, RNC) Resting Tone (Palpate): Relaxed (Oralia Yomi, RNC) Monitor Mode: External US (Oralia Celaya, RNC) FHR Baseline Rate : 135 (Oralia Celaya, RNC) Variability: Moderate 6-25 bpm (Oraliamichael Celaya, RNC) Accelerations: None (Oraliamichael Celaya, RNC) Decelerations: None (Oralia Celaya, RNC) Dilatation (cm): 10.0 (Oralia Celaya, RNC) Effacement (%): 100 (Oralia Yomi [facility]) Station: 2 (Oralia Yomi [facility]) Exam by: A Javi PAIZ (Oralia Celaya [facility]) Datetime: 06/17/2016 12:59 Communication: Provider at Bedside (Oraliasonny Celaya [facility]) Communication Comments: Emeli Caldwell CNM at (Oralia Celaya [facility]) Datetime: 06/17/2016 12:55 NBP Sys/Yanique/Mean (mmHg): 113 (QS system process) : 67 (QS system process) : 84 (QS system process) Pulse: 87 (QS system process) LaborFlag: OB Triage (QS system process) Datetime: 06/17/2016 12:45 Monitor Mode: External; Palpation (Oralia Yomi, RNC) Frequency (min): 2.5-3 (Oralia Yomi, RNC) Quality: Mild (Oralia Yomi, RNC) Duration (sec): 60-90 (Oralia Yomi, RNC) Duration Criteria: Less than Two 120 Second Contractions (Oralia Yomi, RNC) Pattern: Normal: <= 5 Contractions in 10 Minutes (Oralia Yomi, RNC) Resting Tone (Palpate): Relaxed (Oralia Yomi, RNC) Monitor Mode: External US (Oralia Yomi, RNC) FHR Baseline Rate : 135 (Oralia Yomi, RNC) Variability: Moderate 6-25 bpm (Oralia Yomi, RNC) Accelerations: 15X15 (Oralia Yomi, RNC) Decelerations: None (Oralia Yomi, RNC) Datetime: 06/17/2016 12:40 I/O Interventions: Flynn Cath Inserted (Oralia Yomi, RNC) Datetime: 06/17/2016 12:39 NBP Sys/Yanique/Mean (mmHg): 109 (QS system process) : 67 (QS system process) : 81 (QS system process) Pulse: 78 (QS system process) LaborFlag: OB Triage (QS system process) Datetime: 06/17/2016 12:38 NBP Sys/Yanique/Mean (mmHg): 113 (QS system process) : 67 (QS system process) : 84 (QS system process) Pulse: 87 (QS system process) LaborFlag: OB Triage (QS system process) Datetime: 06/17/2016 12:37 NBP Sys/Yanique/Mean (mmHg): 107 (QS system process) : 63 (QS system process) : 80 (QS system process) Pulse: 96 (QS system process) LaborFlag: OB Triage (QS system process) Datetime: 06/17/2016 12:36 NBP Sys/Yanique/Mean (mmHg): 114 (QS system process) : 77 (QS system process) : 90 (QS system process) Pulse: 93 (QS system process) LaborFlag: OB Triage (QS system process) Datetime: 06/17/2016 12:35 NBP Sys/Yanique/Mean (mmHg): 113 (QS system process) : 68 (QS system process) : 85 (QS system process) Pulse: 97 (QS system process) LaborFlag: OB Triage (QS system process) Datetime: 06/17/2016 12:34 NBP Sys/Yanique/Mean (mmHg): 107 (QS system process) : 61 (QS system process) : 78 (QS system process) Pulse: 87 (QS system process) LaborFlag: OB Triage (QS system process) Datetime: 06/17/2016 12:33 NBP Sys/Yanique/Mean (mmHg): 104 (QS system process) : 60 (QS system process) : 75 (QS system process) Pulse: 88 (QS system process) LaborFlag: OB Triage (QS system process) Datetime: 06/17/2016 12:32 NBP Sys/Yanique/Mean (mmHg): 105 (QS system process) : 60 (QS system process) : 76 (QS system process) Pulse: 82 (QS system process) LaborFlag: OB Triage (QS system process) Datetime: 06/17/2016 12:31 NBP Sys/Yanique/Mean (mmHg): 108 (QS system process) : 63 (QS system process) : 79 (QS system process) Pulse: 82 (QS system process) LaborFlag: OB Triage (QS system process) Datetime: 06/17/2016 12:30 Monitor Mode: External; Palpation (Oralia Yomi, RNC) Frequency (min): 3-4 (Oralia Yomi, RNC) Quality: Moderate to Strong (Oralia Yomi, RNC) Duration (sec): 60-90 (Oralia Yomi, RNC) Duration Criteria: Less than Two 120 Second Contractions (Oralia Yomi, RNC) Pattern: Normal: <= 5 Contractions in 10 Minutes (Oralia Yomi, RNC) Resting Tone (Palpate): Relaxed (Oralia Yomi, RNC) Monitor Mode: External US (Oralia Yomi, RNC) FHR Baseline Rate : 135 (Oralia Yomi, RNC) Variability: Moderate 6-25 bpm (Oralia Yomi, RNC) Accelerations: 15X15 (Oralia Yomi, RNC) Decelerations: None (Oralia Yomi, RNC) Datetime: 06/17/2016 12:27 Pulse: 83 (QS system process) SpO2 (%): 100 (QS system process) LaborFlag: OB Triage (QS system process) Datetime: 06/17/2016 12:25 Procedure Verify: Correct Patient Identity; Correct Side and Site are Marked; Accurate Procedure Consent Form; Agreement on Procedure to be Done; Correct Patient Position; Relevant Images and Results are Properly Labeled and Displayed; Addressed Need to Administer Antibiotics or Fluids for Irrigation; Safety Precautions Based on Patient History or Medication Use (RAMON Bernabe) Anesthesia Plans: Epidural (RAMON Bernabe) Datetime: 06/17/2016 12:15 IV/Blood Work: New IV Bag Hung; IV Bag Number @ 3 (Oralia Yomi, RNC) Datetime: 06/17/2016 12:00 Monitor Mode: External; Palpation (Oralia Yomi, RNC) Frequency (min): 5-6 (Oralia Yomi, RNC) Quality: Moderate to Strong (Oralia Yomi, RNC) Duration (sec): 50-80 (Oralia Yomi, RNC) Duration Criteria: Less than Two 120 Second Contractions (Oralia Yomi, RNC) Pattern: Normal: <= 5 Contractions in 10 Minutes (Oarlia Yomi, RNC) Resting Tone (Palpate): Relaxed (Oralia Yomi, RNC) Monitor Mode: External US (Oralia Yomi, RNC) FHR Baseline Rate : 135 (Oralia Yomi, RNC) Variability: Moderate 6-25 bpm (Oralia Yomi, RNC) Accelerations: 15X15 (Oralia Yomi, RNC) Decelerations: None (Oralia Yomi, RNC) Datetime: 06/17/2016 11:30 Monitor Mode: External; Palpation (Oralia Yomi, RNC) Frequency (min): 3-5 (Oralia Celaya, RNC) Quality: Moderate to Strong (Oralia Celaya, RNC) Duration (sec): 50-80 (Oralia Celaya, RNC) Duration Criteria: Less than Two 120 Second Contractions (Oralia Celaya, RNC) Pattern: Normal: <= 5 Contractions in 10 Minutes (Oralia Celaya, RNC) Resting Tone (Palpate): Relaxed (Oralia Celaya, RNC) Monitor Mode: External US (Oralia Celaya, RNC) FHR Baseline Rate : 135 (Oralia Celaya, RNC) Variability: Moderate 6-25 bpm (Oralia Yomi, RNC) Accelerations: 15X15 (Oralia Celaya, RNC) Decelerations: None (Oralia Celaya, RNC) Datetime: 06/17/2016 11:16 Dilatation (cm): 8.0 (Oralia Celaya, RNC) Effacement (%): 90 (Oralia Celaya, RNC) Exam by: Emeli Caldwell CNM (Oralia Celaya, RNC) Membrane Status: Ruptured (Oralia Celaya, RNC) Membranes Rupture Method: Artificial (Oralia Celaya, RNC) Amniotic Fluid Color: Clear (Oralia Celaya, RNC) Amniotic Fluid Amount: Moderate (Oralia Celaya, RNC) Datetime: 06/17/2016 11:00 Monitor Mode: External (Rosa Marlatt, RN) Frequency (min): 2.5-6 (Rosa Marlatt, RN) Quality: Moderate (Rosa Marlatt, RN) Duration (sec): 60 (Rosa Marlatt, RN) Resting Tone (Palpate): Relaxed (Rosa Marlatt, RN) Monitor Mode: External US (Rosa Marlatt, RN) FHR Baseline Rate : 140 (Rosa Marlatt, RN) Variability: Moderate 6-25 bpm (Rosa Marlatt, RN) Accelerations: 15X15 (Rosa Marlatt, RN) Decelerations: None (Rosa Rhodalatt, RN) IV/Blood Work: IV Bag Number @ 2 (Oralia Celaya [facility]) Datetime: 06/17/2016 10:30 Monitor Mode: External (Rosa Marlatt, RN) Frequency (min): 4.5-5.5 (Rosa Marlatt, RN) Quality: Moderate (Rosa Marlatt, RN) Duration (sec): 50 (Rosa Marlatt, RN) Resting Tone (Palpate): Relaxed (Rosa Marlatt, RN) Monitor Mode: External US (Rosa Marlatt, RN) FHR Baseline Rate : 140 (Rosa Marlatt, RN) Variability: Moderate 6-25 bpm (Rosa Carballo RN) Accelerations: 15X15 (Rosa Carballo RN) Decelerations: None (Rosa Carballo RN) Datetime: 06/17/2016 10:15 IV/Blood Work: IV Started; IV Bolus Started; New IV Bag Hung (Alyssa Vazquez RN) Communication: RN at Bedside (Alyssa Vazquez RN) Datetime: 06/17/2016 10:12 NBP Sys/Yanique/Mean (mmHg): 115 (QS system process) : 74 (QS system process) : 90 (QS system process) Pulse: 81 (QS system process) Respirations: 17 (RAMON Bernabe) Pain Scale: 4 (RAMON Bernabe) Pain Presence: Intermittent (RAMON Bernabe) Pain Type: Cramping; Contraction (RAMON Bernabe) Pain Location: Abdomen; Back (RAMON Bernabe) Pain Coping: Talking Through Contractions; Breathing Through Contractions; Requesting Pain Medication or Epidural (RAMON Bernabe) Level of Consciousness: Fully Conscious (RAMON Bernabe) DTR's/Clonus: DTRs 2+; No Clonus (RAMON Bernabe) Headache: Denies (RAMON Bernabe) Breath Sounds, Left: Clear and Equal (RAMON Bernabe) Breath Sounds, Right: Clear and Equal (RAMON Bernabe) Nausea/Vomiting: Denies (RAMON Bernabe) RUQ Epigastric Pain: Denies (RAMON Bernabe) Instructional Method: Verbal; Patient Instructed (RAMON Bernabe) Plan of Care: Plan of Care Discussed; Vaginal Delivery; Labor (RAMON Bernabe) Unit Routine: [place] to Room; Call Stout; Unit Personnel; Consents Signed; Monitoring; Bathroom Privileges; Routine Time Outs; Medications (RAMON Bernabe) Labor/Induction: Labor Stages; Artificial Rupture of Membranes; Activity (RAMON Bernabe) Pain Management: IV Narcotics; Epidural; Pain Scale/Goals; Comfort Measures (RAMON Bernabe) Medications: IV Narcotics (RAMON Bernabe) LaborFlag: OB Triage (QS system process)
[2016-06-17] MEDS: IBUPROFEN 800 MG TABLET PO SCH (21:16)
[2016-06-17] MEDS: FAMOTIDINE 20 MG TABLET PO SCH (21:16)
[2016-06-18] MEDS: IBUPROFEN 800 MG TABLET PO SCH ×3 (05:55→21:34)
--- NOTE | 2016-06-18 06:00 | L&D Current Admission ---
Current Admit Datetime Report Generated by CPN: 06/18/2016 06:00 ADMISSION INFORMATION Current Admit Date/Time: 06/17/2016 10:30 (06/17/2016 05:04:RAMON Bernabe) Reason for Admission: Onset of Labor (06/17/2016 05:04:RAMON Bernabe) Chief Complaint: Contractions (06/17/2016 10:12:RAMON Bernabe) Medications During : Vitamin (06/17/2016 05:04:RAMON Bernabe) EGA per Dates: 37.6 (06/17/2016 05:04:QS system process) Method of Arrival: Wheelchair (06/17/2016 05:04:RAMON Bernabe) Admitted From: Dr. Carcamo (06/17/2016 05:04:RAMON Bernabe) Reason for Induction: Not Applicable (06/17/2016 05:04:RAMON Bernabe) Records Available: Yes (06/17/2016 05:04:RAMON Bernabe) General Admission Information: Reviewed (06/17/2016 05:04:RAMON Bernabe) General Admission Reviewed By: Jose Roberto NAVARRO (06/17/2016 05:04:RAMON Bernabe) BELONGINGS/ADVANCED DIRECTIVES Valuables/Personal Effects: Purse/Wallet (06/17/2016 05:04:RAMON Bernabe) Disposition of Belongings: Kept with Patient (06/17/2016 05:04:RAMON Bernabe) Advance Direct for Healthcare: No, and Wants No Information (06/17/2016 05:04:RAMON Bernabe) Durable Power of [employer] Hcm Consultant: No (06/17/2016 05:04:RAMON Bernabe) Living Will: No (06/17/2016 05:04:RAMON Bernabe) Organ Donor: No (06/17/2016 05:04:RAMON Bernabe) Pt Rights Information Given: Yes (06/17/2016 05:04:RAMON Bernabe) Pt Understands Pt Rights: Yes (06/17/2016 05:04:RAMON Bernabe) LEARNING ASSESSMENT Knowledge Level: Understands L_D Process; Understands Care Activities (06/17/2016 05:04:RAMON Bernabe) Barriers to Learning: None (06/17/2016 05:04:RAMON Bernabe) Learning Readiness: Motivated (06/17/2016 05:04:RAMON Bernabe) Learns Best By: 1 to 1 Instruction (06/17/2016 05:04:RAMON Bernabe) Learning Needs: Labor and Delivery Process; Pain Management; Symptoms to Report; Treatment Plan (06/17/2016 05:04:RAMON Bernabe) DOMESTIC VIOLANCE SCREENING Dom Viol Threatened/Hurt: No (06/17/2016 05:04:RAMON Bernabe) Hx of Abuse/Neglect past 2yrs: No (06/17/2016 05:04:RAMON Bernabe) Feel Unsafe Going Home: No (06/17/2016 05:04:RAMON Bernabe) Addt'l Observ Indicating Abuse: No (06/17/2016 05:04:RAMON Bernabe) Reason Unable to Complete Screen: N/A, Screen Completed (06/17/2016 05:04:RAMON Bernabe) Considered Personal Harm/Suicide: No (06/17/2016 05:04:RAMON Bernabe) NUTRITIONAL/FUNCTIONAL SCREENING Problem with Appetite >5 Days: No (06/17/2016 05:04:RAMON Bernabe) Chew/Swallow Difficulties: No (06/17/2016 05:04:RAMON Bernabe) Inappropriate Wt Gain/Loss: No (06/17/2016 05:04:RAMON Bernabe) Presence Skin Breakdown/Ulcer: No (06/17/2016 05:04:RAMON Bernabe) Special Diet: No (06/17/2016 05:04:RAMON Bernabe) Pt Requests Member Service Specialist Visit: No (06/17/2016 05:04:RAMON Bernabe) Hx of Any of the Following?: N/A (06/17/2016 05:04:RAMON Bernabe) New Diagnosis of: N/A (06/17/2016 05:04:RAMON Bernabe) Requires Assist w/Ambulation: No (06/17/2016 05:04:RAMON Bernabe) Uses Assist Device to Ambulate: No (06/17/2016 05:04:RAMON Bernabe) Pt Requires Help w/ADL's: No (06/17/2016 05:04:RAMON Bernabe)
--- NOTE | 2016-06-18 06:01 | L&D General Admission ---
General Admit Datetime Report Generated by CPN: 06/18/2016 06:00 INFORMATION Patient Age: 21 (05/06/2016 08:58:QS system process) EDC: 07/02/2016 00:00 (06/15/2016 18:54:Rosa Carballo RN) : 2 (06/15/2016 18:54:Rosa Carballo RN) Para: 1 (06/17/2016 06:25:Lenka Osorio RN) Baby, Number in Womb: 1 (06/17/2016 06:25:Lenka Osorio RN) CARE Primary Industrial Garage Servicer: [facility] (06/15/2016 18:54:Rosa Carballo RN) Adequate Care: Yes (06/15/2016 18:54:Shana Grant RN) Height (in): 64 (06/17/2016 16:16:QS system process) ALLERGIES Medication Allergy: Yes (06/15/2016 18:54:Shana Grant RN) Medication Allergies: Penicillins/MO/Generalized dulce (06/17/2016); amoxicillin/MO/Generalized dulce (06/17/2016) (06/17/2016 10:27:QS system process) Latex Allergy: No Latex Allergies (06/15/2016 18:54:Shana Grant RN) Food Allergies: NA (06/15/2016 18:54:Shana Grant RN) Environmental Allergies: NA (06/15/2016 18:54:Shana Grant RN) COMMUNICATION Primary Language: Dominican (06/15/2016 18:54:Shana Grant RN) Medical Tx Preferred Language: Dominican (06/15/2016 18:54:Shana Grant RN) Communication Barrier(s): None (06/15/2016 18:54:Shana Grant RN) DEMOGRAPHICS Address: [address] [place] [address] [facility], [address] [place] [address] (06/17/2016 05:05:QS system process) Zipcode: [address] (06/17/2016 05:05:QS system process) Home (05/06/2016 08:58:QS system process) SSN: [id number] (05/06/2016 08:58:QS system process) Next of Kin Name: LENKA MALONE (05/06/2016 08:58:QS system process) Next of Kin (05/06/2016 08:58:QS system process) Next of Kin Relationship: MO (05/06/2016 08:58:QS system process) Date of : 1995 (05/06/2016 08:58:QS system process) Marital Status: Single (05/06/2016 08:58:QS system process) Sex: Female (05/06/2016 08:58:QS system process) Race: (05/06/2016 08:58:QS system process) Ethnicity: Non- or (05/06/2016 08:58:QS system process) Quaker: Religious (05/06/2016 08:58:QS system process) DRUG AND ALCOHOL USE Alcohol: No (06/15/2016 18:54:Crystal Stockdale, RN) Cigarettes: Never Smoker. [id number] (06/15/2016 18:54:Crystal Stockdale, RN) Marijuana: No (06/15/2016 18:54:Crystal Stockdale, RN) Cocaine: No (06/15/2016 18:54:Crystal Stockdale, RN) Other Illicit Drugs: No (06/15/2016 18:54:Crystal Stockdale, RN) VACCINE HISTORY Influenza Vaccine: No (06/15/2016 18:54:Crystal Rudy, RN) Pneumococcal Vaccine: No (06/15/2016 18:54:Crystal Rudy, RN) Tetanus Vaccine: Yes (06/15/2016 18:54:Crystal Rudy, RN) Tdap Vaccine: Yes (06/15/2016 18:54:Crystal Rudy, RN) Hepatitis B Vaccine: No (06/15/2016 18:54:Crystal Rudy, RN) Retail Presentation Specialist: [employer] (06/15/2016 18:54:Shana Grant RN) Feeding Preference: Formula (06/15/2016 18:54:Shana Grant RN) Benefit of Breast Feed Discussed: Yes (06/15/2016 18:54:Shana Grant RN) Circumcision: Yes (06/15/2016 18:54:Shana Grant RN) Classes Attended: No (06/15/2016 18:54:Shana Grant RN) Tubal Ligation: No (06/15/2016 18:54:Shana Grant RN) Tubal Authorization Signed: N/A (06/15/2016 18:54:Shana Grant RN) Consent: N/A (06/15/2016 18:54:Shana Grant RN) Consent Signed: N/A (06/15/2016 18:54:Shana Grant RN) Pain Management Plans: Epidural (06/15/2016 18:54:Shana Grant RN) Plans for Labor and Delivery: None (06/15/2016 18:54:Shana Grant RN) Support Person: Gianni Houser (06/15/2016 18:54:Shana Grant RN) Support Person Relationship: (06/15/2016 18:54:Shana Grant RN) Cultural/Spritual Practice: No (06/15/2016 18:54:Shana Grant RN) Spir/Cult Dietary Needs: No (06/15/2016 18:54:Shana Grant RN) LIVING SITUATION/DISCHARGE PLAN Living Arrangements: House (06/15/2016 18:54:Shana Grant RN) Adequate Access to:: Electric; Heat; Refrigeration; Plumbing/Running water; Phone; Transportation (06/15/2016 18:54:Shana Grant RN) WIC Program: Yes (06/15/2016 18:54:Shana Grant RN) Discharge Philosophy Faculty Person: Gianni Houser (06/15/2016 18:54:Shana Grant RN) Person to Help after Discharge: Gianni Houser (06/15/2016 18:54:Shana Grant RN) Currently Using Commun Resources: Yes (06/15/2016 18:54:Shana Grant RN) Outside Agency/Underground Miner: Yes (06/15/2016 18:54:Shana Grant RN) Car Seat for Discharge: Yes (06/15/2016 18:54:Shana Grant RN) Adoption Requested: No (06/15/2016 18:54:Rosa Carballo RN) Pt Contact w/infant Post : N/A (06/15/2016 18:54:Shana Grant RN) LABS Blood Type: O Positive (06/15/2016 18:54:Shana Grant RN) Antibody Screen: Negative (06/15/2016 18:54:Shana Grant RN) Hemoglobin: 10.4 L (06/17/2016 10:39:QS system process) Hematocrit: 30.6 L (06/17/2016 10:39:QS system process) MCV: 97 (06/17/2016 10:39:QS system process) Group Beta Strep: Negative (06/15/2016 18:54:Shana Grant RN) Gonorrhea: Negative (06/15/2016 18:54:Shana Grant RN) Chlamydia: Negative (06/15/2016 18:54:Shana Grant RN) RPR/VDRL: Nonreactive (06/15/2016 18:54:Shana Grant RN) Hepatitis B: Negative (06/15/2016 18:54:RAMON Bernabe) Rubella: Immune (06/15/2016 18:54:Shana Grant RN) OB/PREVIOUS HISTORY Current Procedures: Ultrasound (06/15/2016 18:54:Shana Grant RN) History of Previous : No (06/15/2016 18:54:Shana Grant RN) History of Gestational Diabetes: No (06/15/2016 18:54:Shana Grant RN) History of PIH: No (06/15/2016 18:54:Shana Grant RN) History of Incompetent Cervix: No (06/15/2016 18:54:Shana Grant RN) History of Placenta Previa/Abrup: No (06/15/2016 18:54:Shana Grant RN) History of Macrosomia: No (06/15/2016 18:54:Shana Grant RN) History of IUGR: No (06/15/2016 18:54:Shana Grant RN) History of Hemorrhage: No (06/15/2016 18:54:Shana Grant RN) History of Loss/Stillborn: No (06/15/2016 18:54:Shana Grant RN) History of : No (06/15/2016 18:54:Shana Grant RN) History of D (Rh) Sensitization: No (06/15/2016 18:54:Shana Grant RN) History Recurrent Loss/Stillborn: No (06/15/2016 18:54:Shana Grant RN) History Depression/PP Depression: No (06/15/2016 18:54:Shana Grant RN) History of Uterine Anomaly/JENNY: No (06/15/2016 18:54:Shana Grant RN) History of Infertility: No (06/15/2016 18:54:Shana Grant RN) History of ART Treatment: No (06/15/2016 18:54:Shana Grant RN) History of JENNY: No (06/15/2016 18:54:Shana Grant RN) Comments Obstetrical History: G1 NVD 2015 boy G2 current (06/15/2016 18:54:Rosa Carballo RN) MEDICAL HISTORY Med Hx Diabetes: No (06/15/2016 18:54:Shana Grant RN) Med Hx Hypertension: No (06/15/2016 18:54:Shana Grant RN) Med Hx Heart Disease: No (06/15/2016 18:54:Shana Grant RN) Med Hx Autoimmune Disorder: No (06/15/2016 18:54:Shana Grant RN) Med Hx Kidney Disease/UTI: No (06/15/2016 18:54:Shana Grant RN) Med Hx Neurologic/Epilepsy: No (06/15/2016 18:54:Shana Grant RN) Med Hx Psychiatric Disorders: No (06/15/2016 18:54:Shana Grant RN) Med Hx Hepatitis/Liver Disease: No (06/15/2016 18:54:Shana Grant RN) Med Hx Varicosities/Phlebitis: No (06/15/2016 18:54:Shana Grant RN) Med Hx Thyroid Dysfunction: No (06/15/2016 18:54:Shana Grant RN) Med Hx Trauma/Violence: No (06/15/2016 18:54:Shana Grant RN) Med Hx Blood Transfusion: No (06/15/2016 18:54:Shana Grant RN) Med Hx Pulmonary (Asthma,TB): No (06/15/2016 18:54:Shana Grant RN) Med Hx Breast: No (06/15/2016 18:54:Shana Grant RN) Med Hx METAL STORAGE WORKER Surgery: No (06/15/2016 18:54:Shana Grant RN) Med Hx Hospitalization/Surgery: Yes (06/15/2016 18:54:Rosa Carballo RN) Med Hx Anesthetic Complications: No (06/15/2016 18:54:Shana Grant RN) Med Hx Abnormal Pap Smear: No (06/15/2016 18:54:Shana Grant RN) Other Medical Diseases: No (06/15/2016 18:54:Shana Grant RN) Med Hx Significant Family Hx: No (06/15/2016 18:54:Shana Grant RN) Details of Med/Surg Hx: childbirth (06/15/2016 18:54:Rosa Carballo RN) INFECTIOUS HISTORY Inf Hx Gonorrhea: No (06/15/2016 18:54:Shana Grant RN) Inf Hx Chlamydia: No (06/15/2016 18:54:Shana Grant RN) Inf Hx Syphilis: No (06/15/2016 18:54:Shana Grant RN) Inf Hx HIV/AIDS: No (06/15/2016 18:54:Shana Grant RN) Inf Hx Human Papilloma Virus: No (06/15/2016 18:54:Shana Grant RN) Inf Hx Pt/Partner Genital Herpes: No (06/15/2016 18:54:Shana Grant RN) Inf Hx Tuberculosis/Exposure: No (06/15/2016 18:54:Shana Grant RN) Inf Hx Hepatitis B,C: No (06/15/2016 18:54:Shana Grant RN) Inf Hx Rash or Viral Illness: No (06/15/2016 18:54:Shana Grant RN) GENETIC HISTORY Gen Hx Age >=35 at EDDIE: No (06/15/2016 18:54:Shana Grant RN) Gen Hx Thalassemia: No (06/15/2016 18:54:Shana Grant RN) Gen Hx Congenital Heart Defect: No (06/15/2016 18:54:Shana Grant RN) Gen Hx Neural Tube Defect: No (06/15/2016 18:54:Shana Grant RN) Gen Hx Down's Syndrome: No (06/15/2016 18:54:Shana Grant RN) Gen Hx Rj-Sachs: No (06/15/2016 18:54:Shana Grant RN) Gen Hx Ani: No (06/15/2016 18:54:Shana Grant RN) Gen Hx Familial Dysautonomia: No (06/15/2016 18:54:Shana Grant RN) Gen Hx Sickle Cell Disease/Trait: No (06/15/2016 18:54:Shana Grant RN) Gen Hx Hemophilia/Blood Disorder: No (06/15/2016 18:54:Shana Grant RN) Gen Hx Muscular Dystrophy: No (06/15/2016 18:54:Shana Grant RN) Gen Hx Cystic Fibrosis: No (06/15/2016 18:54:Shana Grant RN) Gen Hx [place] Chorea: No (06/15/2016 18:54:Shana Grant RN) Gen Hx Mental Retardation/Autism: No (06/15/2016 18:54:Shana Grant RN) Gen Hx Tested for Fragile X: No (06/15/2016 18:54:Shana Grant RN) Gen Hx Other Inher/Chromosomal: No (06/15/2016 18:54:Shana Grant RN) Gen Hx Maternal Metabolic DO: No (06/15/2016 18:54:Shana Grant RN) Gen Hx Pt Father or FOB Defect: No (06/15/2016 18:54:Shana Grant RN) Gen Hx Other Genetic History: No (06/15/2016 18:54:Shana Grant RN) Gen Hx Drugs/Meds since LMP: No (06/15/2016 18:54:Shana Grant RN)
--- NOTE | 2016-06-18 06:16 | L&D Care Plan ---
LD CARE PLANS Datetime Report Generated by CPN: 06/18/2016 06:15 Datetime: 06/17/2016 10:36 Pain State: Risk For (RAMON Bernabe) Related To: Labor and Delivery Process (RAMON Bernabe) Goal(s): Patients Pain will be Assessed and Managed; Patient will Verbalize Adequate Relief of Pain or the Ability to [place] with Current Pain (RAMON Bernabe) Interventions: Assess Pain Severity on Scale of 0 (None) to 5 (Severe); Assess Type, Location and Intensity of Pain Each Time Client Reports Discomfort and Notify Provider if Unusal Pain Develops; Encourage Proper Breathing and Relaxation Techniques; Offer Alternatives Such as Repositioning, Calm Environment, Massages, Diversional Activities, Ice Pack, Splinting, and Ambulation; Administer Analgesics as Ordered; Assist with Epidural Placement as Appropriate; Evaluate Therapeutic Effectiveness of Medication and Treatments (RAMON Bernabe) Outcome: Patient will Report Absence or Relief of Pain Consistent with Established Pain Goal (RAMON Bernabe) Outcome: Patient will have a Decrease in Signs and Symptoms of Discomfort (RAMON Bernabe) Outcome: Pain will be Controlled During Procedures (RAMON Bernabe) Anxiety State: Risk For (RAMON Bernabe) Related To: Labor and Delivery Process; Surgical Procedure; Perceived or Actual Threat to ; Fear of Unknown; Situational Crisis; Medical Interventions; Significant Life Event (RAMON Bernabe) Goal(s): Patient will have Decreased Anxiety and be able to Function at Acceptable Levels (RAMON Bernabe) Interventions: Assess Verbal and Nonverbal Behavioral Indicators of Anxiety; Assist Patient to Identify and Verbalize Symptoms of Anxiety; Identify and Demonstrate Techniques to Control Anxiety; Assist Patient with Coping Mechanisms to Manage Anxiety; Provide Theraputic Touch for the Patient; Explain to Patient, Using a Calm Reassuring Approach and Nonmedical Terms, All Activities, Procedures, and Concerns; Instruct Patient and Family about Post Discharge Care, Limitations, Symptoms to Report and Resources Available (RAMON Bernabe) Outcome: Patient will Identify, Verbalize and Demonstrate Techniques to Control Anxiety (RAMON Bernabe) Outcome: Patient's Posture, Facial Expressions, Gestures and Activity Level will Reflect Decreased Anxiety (RAMON Bernabe) Outcome: Patient will Verbalize a Sense of Control and/or Acceptance of the Situation (RAMON Bernabe) Outcome: Patient will Identify and Utilize Support Person (RAMON Bernabe) Knowledge Deficit State: Risk For (RAMON Bernabe) Related To: Labor and Delivery Process; Surgical Procedures (RAMON Bernabe) Goal(s): Patient will Accurately Verbalize Understanding of Plan of Care and Treatment; Patient and Family will Accurately Verbalize Understanding of the Disease Process (RAMON Bernabe) Interventions: Assess Motivation and Willingness of Patient/Family to Learn; Assess Preferred Learning Mode: One to One Instruction, Reading, Videos, Group Discussion or Demonstration; Assess Barriers to Learning: Pain, Emotional State, Language Barrier, Cognitive Impairment, Visual or Hearing Deficits; Assess Patient and Family Knowledge of Disease Process, Medications and Treatment; Discuss Therapy and/or Treatment Options, Describe Rationale Behind Management, Therapy and Treatment Recommendations; Instruct Patient and Family on Signs and Symptoms to Report; Instruct Patient and Family on Medication Effects and Side Effects; Provide Appropriate and Timely Education Using Multiple Techniques; Provide Patient and Family with Support Group Information and Resources; Give Clear and Thorough Explanations and Demonstrations (RAMON Bernabe) Outcome: Patient and Family will Verbalize Understanding of Condition, Treatment and Signs and Symptoms to Report (RAMON Bernabe) Outcome: Patient will Identify Perceived Learning Needs and Express Motivation to Learn (RAMON Bernabe) Outcome: Patient will Verbalize Understanding of Desired Content, and/or Performs Desired Skill Prior to Discharge (RAMON Bernabe) Infection State: Not Applicable (RAMON Bernabe) Related To: Prolonged Labor or Induction (RAMON Bernabe) Goal(s): The Patient will be Free of Infection, Vital Signs Stable and Lab Work within Normal Parameters (RAMON Bernabe) Interventions: Instruct and Reinforce Proper Handwashing, Hygiene, and Care Techniques to Patient and Family; Monitor Vital Signs; Monitor Patient for the Following Signs of Infection: Fever, Abdominal Tenderness, Unusual Discharge; Monitor Aminiotic Fluid, Urine and Lochia for Color and Odor; Observe Wounds, Incisions and Invasive Line Sites for Redness, Drainage and Edema; Assess IV Sites per Hospital Policy; Monitor Lab and Test Results and Notify Provider of Abnormal Findings; Assess Nutritional Status and Promote Good Nutrition (RAMON Bernabe) Outcome: Patient will Remain Free of Infection (RAMON Bernabe) Outcome: Infection will be Recognized Early to Allow for Prompt Treatment (RAMON Bernabe) Outcome: Patient will have Vital Signs Within Expected Range (RAMON Bernabe) Fluid Volume State: Risk For (RAMON Bernabe) Related To: Gestational Hypertension; Surgical Procedures; Prolonged Labor or Induction; Hemorrhage; Disease Process; Anesthesia; Altered Renal Function (RAMON Bernabe) Goal(s): Patient will Achieve and Maintain a Balanced Fluid Volume Status; Hemodynamically Stable (RAMON Bernabe) Interventions: Monitor Vital Signs; Auscultate Breath Sounds; Monitor Patient for Skin Turgor, Mucous Membranes, Dry Skin, Weakness, Headaches and Confusion; Provide Oral Fluids as Ordered; Initiate and Maintain Intravenous Fluids as Ordered; Monitor Intake and Output as Indicated Per Patient Status; Accurately Measure Blood Loss; Monitor Lab and Test Results as Obtained and Notify Provider of Abnormal Findings; Monitor Patient's Weight (RAMON Bernabe) Outcome: Patient will have Clear Lung Sounds (RAMON Bernabe) Outcome: Patient will have Vital Signs within Expected Range (RAMON Bernabe) Outcome: Urine Output will be within Expected Range (RAMON Bernabe) Outcome: Patient will have Minimal Generalized or Upper Extremity Edema (RAMON Bernabe) Injury State: Risk For (RAMON Bernabe) Related To: Gestational Hypertension or Eclampsia; Anesthesia; Altered Coagulation (RAMON Bernabe) Goal(s): Patient will Remain Free from Injury (RAMON Bernabe) Interventions: Monitoring as per Hospital Protocol; Assess Neurological Status; Perform Risk Assessment of Patients with Induction and ; Perform Fall Risk Assessment and Prevention per Hospital Protocol; Perform DVT Risk Assessment and Prophylaxis per Hospital Protocol; Ensure that Oxygen, Suction, and Resuscitation Medications and Equipment are Readily Available; Confirm Patient ID Prior to Procedure(s) and Medication Administration per Hospital Policy (RAMON Bernabe) Outcome: Successful Fall Risk Prevention (RAMON Bernabe) Outcome: Patient will Deliver without Adverse [place]ela (RAMON Bernabe) Outcome: Patient's Neurological Status will Remain Stable (RAMON Bernabe) Impaired Skin Integrity State: Risk For (RAMON Bernabe) Related To: Vaginal Delivery; Surgical Procedures; Prolonged Bedrest (RAMON Bernabe) Goal(s): Patient will Maintain Optimal Skin Integrity, Free of Breakdown, Injury or Infection (RAMON Bernabe) Interventions: Complete Screening for Pressure Ulcer Risk and Initiate Protocol per Hospital Policy; Monitor Site of Skin Impairment for Color Changes, Redness, Swelling, Warmth, Pain or Other Signs of Infection; Encourage and Assist with Position Changes; Monitor Patient's Mobility Status; Provide Adequate Nutrition and Fluids; Teach Patient Appropriate Hygienic Care; Teach Patient/Family Skin Care Management (RAMON Bernabe) Outcome: Patient will not have Evidence of Injury Such as Skin Breakdown, Scrapes, Cuts, or Bruising (RAMON Bernabe) Outcome: Patient will Report Any Altered Sensation or Pain at Site of Skin Impairment (Oralia Celaya RNC) Outcome: Patients Incisions and Wounds will be without Signs or Symptoms of Infection (RAMON Bernabe) Outcome: Patient will Demonstrate Understanding of Plan to Heal Skin and Prevent Reinjury and Verbalize Risk Factors (RAMON Bernabe) Parenting Impaired State: Not Applicable (Oralia Yomi, RNC) Nutrition State: Not Applicable (Oralia Yomi, RNC) Grieving State: Not Applicable (Oralia Yomi, RNC) Additional Care Plan State: Not Applicable (Oralia Yomi, RNC)
[2016-06-18 07:40] LABS: HEMATOCRIT 28.8 % (36.0-47.0); HGB HCT DIFFERENCE 1.2; MEAN CORPUSCULAR HEMOGLOBIN 33.2 pg (27.0-33.4); MEAN CORPUSCULAR HGB CONC 34.6 g/dL (32.0-36.0); MEAN CORPUSCULAR VOLUME 96 fl (80-97); RED CELL DISTRIBUTION WIDTH 13.5 % (11.5-14.0); WHITE BLOOD COUNT 13.6 10^3/uL (4.0-10.5)
[2016-06-18] MEDS: PRENATAL VITAMIN W-O CA NO5/FE FUMARATE/FA CAPSULE PO SCH (09:11)
[2016-06-18] MEDS: FERROUS SULFATE 325 MG TABLET PO SCH ×2 (09:12→17:34)
[2016-06-18] MEDS: SENNOSIDES/DOCUSATE 8.6-50 MG 1 EACH TABLET PO SCH (09:12)
[2016-06-18] MEDS: DOCUSATE SODIUM 100 MG CAPSULE PO SCH ×2 (09:12→17:34)
--- NOTE | 2016-06-18 09:15 | PDOC PROGRESS REPORT ---
Subjective-OB Subjective: Post Delivery Day: 21 year old. Denies any needs at this time Doing well, no c/o, mother holding baby, voiding, taking diet well, not wearing bra Physical Exam (OB) Vital Signs: Temp Pulse Resp BP Pulse Ox 97.4 F 56 L 15 100/60 99 06/18/16 07:51 06/18/16 07:51 06/18/16 07:51 06/18/16 07:51 06/18/16 07:51 Intake & Output 06/17/16 06/18/16 06/19/16 06:59 06:59 06:59 Weight 59 kg - Lochia Lochia Amount: Small 10-25 ml Lochia Color: Rubra/Red - Abdomen Description: Soft Hernia Present: No Fundal Description: Firm, Midline Fundal Height: u/u - u/2 Objective-Diagnostic Laboratory: 06/18/16 07:25 06/17/16 06/17/16 06/17/16 10:07 10:39 10:39 WBC 15.5 H RBC 3.16 L Hgb 10.4 L Hct 30.6 L MCV 97 MCH 33.0 MCHC 34.1 RDW 13.6 Plt Count 199 Seg Neutrophils % 89.3 H Lymphocytes % 8.7 L Monocytes % 2.0 L Eosinophils % 0.0 Basophils % 0.0 Absolute Neutrophils 13.8 H Absolute Lymphocytes 1.4 Absolute Monocytes 0.3 Absolute Eosinophils 0.0 Absolute Basophils 0.0 Urine Color YELLOW Urine Appearance SLIGHTLY-CLOUDY Urine pH 6.0 Ur Specific [place] 1.017 Urine Protein NEGATIVE Urine Glucose (UA) NEGATIVE Urine Ketones NEGATIVE Urine Blood LARGE H Urine Nitrite NEGATIVE Ur Leukocyte Esterase TRACE H Blood Type O POSITIVE Antibody Screen NEGATIVE 06/18/16 07:25 WBC 13.6 H RBC 3.00 L Hgb 10.0 L Hct 28.8 L MCV 96 MCH 33.2 MCHC 34.6 RDW 13.5 Plt Count 201 Seg Neutrophils % Lymphocytes % Monocytes % Eosinophils % Basophils % Absolute Neutrophils Absolute Lymphocytes Absolute Monocytes Absolute Eosinophils Absolute Basophils Urine Color Urine Appearance Urine pH Ur Specific [place] Urine Protein Urine Glucose (UA) Urine Ketones Urine Blood Urine Nitrite Ur Leukocyte Esterase Blood Type Antibody Screen Assessment and Plan(PN) - Assessment and Plan (1) Anemia Qualifiers: Anemia type: iron deficiency Is this a current diagnosis for this admission?: Yes (2) Qualifiers: Weeks of gestation: 40 weeks Qualified Code(s): Z3A.40 - 40 weeks gestation of Is this a current diagnosis for this admission?: Yes (3) Vaginal delivery Is this a current diagnosis for this admission?: Yes - Time Spent with Patient Time with patient: Less than 15 minutes Medications reviewed and adjusted accordingly: Yes - Disposition Anticipated Discharge: Home Within: within 24 hours - wear bra
[2016-06-18] MEDS: FAMOTIDINE 20 MG TABLET PO SCH ×2 (09:55→21:34)
[2016-06-18] MEDS ORDERED: [UNRECOGNIZED DRUG - REMARK] PO SCH (10:00)
[2016-06-18] MEDS: ACETAMINOPHEN 325 MG TABLET PO PRN (12:36)
[2016-06-19] MEDS: IBUPROFEN 800 MG TABLET PO SCH ×2 (05:39→12:21)
[2016-06-19 08:06] VITALS: BP 95/45
--- NOTE | 2016-06-19 09:41 | PDOC PROGRESS REPORT ---
Subjective-OB Subjective: Post Delivery Day: 21 year old. Denies any needs at this time Doing well, ready to go home, voiding, eating well, bottle feeding, would like motrin for pain, Physical Exam (OB) Vital Signs: Temp Pulse Resp BP Pulse Ox 98.1 F 62 16 95/45 L 99 06/19/16 08:03 06/19/16 08:03 06/19/16 08:03 06/19/16 08:03 06/19/16 08:03 Intake & Output 06/18/16 06/19/16 06/20/16 06:59 06:59 06:59 Weight 59 kg - Lochia Lochia Amount: Scant < 10 ml Lochia Color: Rubra/Red - Abdomen Description: Tender, Soft Hernia Present: No Fundal Description: Firm, Midline Fundal Height: u/u - u/2 Objective-Diagnostic Laboratory: 06/18/16 07:25 Assessment and Plan(PN) - Assessment and Plan (1) Anemia Qualifiers: Anemia type: iron deficiency Is this a current diagnosis for this admission?: Yes (2) Qualifiers: Weeks of gestation: 37 weeks Qualified Code(s): Z3A.37 - 37 weeks gestation of Is this a current diagnosis for this admission?: Yes (3) Vaginal delivery Is this a current diagnosis for this admission?: Yes - Time Spent with Patient Time with patient: Less than 15 minutes Medications reviewed and adjusted accordingly: Yes - Disposition Anticipated Discharge: Home Within: Other - home today, F/U with PCP for anxiety
--- NOTE | 2016-06-19 09:44 | PDOC DISCHARGE SUMMARY ---
Final Diagnosis Discharge Date: 06/19/16 - Final Diagnosis (1) Anemia Is this a current diagnosis for this admission?: Yes (2) Is this a current diagnosis for this admission?: Yes (3) Vaginal delivery Is this a current diagnosis for this admission?: Yes Discharge Data - Discharge Medication Home Medications: Comb No.42/Folic Acid [Prena1 Chew Tablet] 1 tab PO DAILY 09/03/14 Ibuprofen [Motrin 800 mg Tablet] 800 mg PO Q8 #60 tablet 06/19/16 Reason(s) for Admission: Onset of Labor Procedures: Ultrasound Intrapartum Procedure(s): Spontaneous Vaginal Delivery Complication(s): Laceration-Perineal Laceration-Degree: 1st - [place] Data Baby 1 Male at 1 minute: 8 at 5 minutes: 9 Weight: 2.863 kg Home with Mother: Yes Complications: No - Diagnosis Test Laboratory: Temp Pulse Resp BP Pulse Ox 98.1 F 62 16 95/45 L 99 06/19/16 08:03 06/19/16 08:03 06/19/16 08:03 06/19/16 08:03 06/19/16 08:03 06/17/16 06/17/16 06/18/16 10:07 10:39 07:25 RBC 3.16 L 3.00 L Hgb 10.4 L 10.0 L Hct 30.6 L 28.8 L Urine Opiates Screen NEGATIVE - Discharge information/Instructions Discharge Activity: Activity As Tolerated, No Lifting Over 10 Pounds, Pelvic Rest, No tub bath Discharge Diet: As Tolerated, Regular Disposition: HOME, SELF-CARE Follow up with: [facility] in: 4, Weeks
[2016-06-19] MEDS: FAMOTIDINE 20 MG TABLET PO SCH (10:39)
[2016-06-19] MEDS: DOCUSATE SODIUM 100 MG CAPSULE PO SCH (10:39)
[2016-06-19] MEDS: PRENATAL VITAMIN W-O CA NO5/FE FUMARATE/FA CAPSULE PO SCH (10:39)
[2016-06-19] MEDS: SENNOSIDES/DOCUSATE 8.6-50 MG 1 EACH TABLET PO SCH (10:39)
[2016-06-19] MEDS: FERROUS SULFATE 325 MG TABLET PO SCH (10:42)
--- NOTE | 2016-06-22 14:31 | Admission Physical ---
Datetime Report Generated by GORDY: 06/22/2016 14:31 Chief Complaint: Uterine Contractions Admit Plan: Admit to Unit; Initiate Labor Protocol General: Normal HEENT: Normal Neurologic: Normal Thyroid: Normal Heart: Normal Lungs: Normal Breast: Normal Back: Normal Abdomen: Normal Genitourinary Exam: Normal Extremities: Normal DTRs: Normal Pelvic Type: Adequate Vital Signs: Reviewed Dilatation: 8 Effacement: 90 Station: -1 Membranes: Intact Monitoring: External US Decelerations: None Presentation: Vertex Admit Comment: 21 yo EDc (Annotations: Data stored by GORDY on behalf of user)
== END 2016-06-19 14:37 | disposition home or self-care (01) | DRG 775 ==
LOC: LR 10:11 → 2S 16:16
PROVIDERS: ADMIT Obstetrics & Gynecology; ATTEND Obstetrics & Gynecology
PROC: 10E0XZZ Delivery of Products of Conception, External Approach (ICD-10-PCS; principal; 2016-06-17)
PROC: 0HQ9XZZ Repair Perineum Skin, External Approach (ICD-10-PCS; 2016-06-17)
PROC: 4A1HXCZ Monitoring of Products of Conception, Cardiac Rate, External Approach (ICD-10-PCS; 2016-06-17)
DX: O70.0 First degree perineal laceration during delivery (principal); O75.81 Maternal exhaustion complicating labor and delivery; Z3A.37 37 weeks gestation of pregnancy; Z37.0 Single live birth; O99.02 Anemia complicating childbirth; D50.9 Iron deficiency anemia, unspecified
CPT/HCPCS: 36415; 80307; 81005; 85025; 85027; 86592; 86850; 86900; 86901; 88307; J2590; J3490

== ENCOUNTER 2017-12-08 22:17 | Emergency (ER) | payer BC, MEDICAID ==
[2017-12-08] MEDS ORDERED: ONDANSETRON 4 MG TAB.RAPDIS PO ONE (23:58)
--- NOTE | 2017-12-08 23:59 | ER Document Report ---
ED Medical Screen (RME) - General Chief Complaint: Vomiting Stated Complaint: DEHYDRATION Time Seen by Provider: 12/08/17 23:56 Notes: Patient presents with onset of nausea that started last night woke up and had approximately 8 bouts of vomiting today but no diarrhea. No recent travel has not been around any sick contacts and has not been out of the country recently. Generalized body aches but no specific point pain and denies any chest or abdominal pain at this time. No burning with urination. Patient states she has a history of POTS (positional orthostatic tachycardic syndrome, otherwise no known medical problems I have greeted and performed a rapid initial assessment of this patient. A comprehensive ED assessment and evaluation of the patient, analysis of test results and completion of the medical decision making process will be conducted by additional ED providers. PHYSICAL EXAMINATION: GENERAL: Well-appearing, well-nourished and in no acute distress. HEAD: Atraumatic, normocephalic. EYES: Pupils equal round extraocular movements intact, conjunctiva are normal. ENT: Nares patent NECK: Normal range of motion LUNGS: No respiratory distress Musculoskeletal: Normal range of motion NEUROLOGICAL: Normal speech, normal gait. PSYCH: Normal mood, normal affect. SKIN: Warm, Dry, normal turgor, no rashes or lesions noted. TRAVEL OUTSIDE OF THE [place] IN LAST 30 DAYS: No - Related Data Allergies/Adverse Reactions: amoxicillin [Amoxicillin] Allergy (Intermediate, Verified 06/17/16 10:27) Generalized rash Penicillins Allergy (Intermediate, Verified 06/17/16 10:27) Generalized rash Physical Exam - Vital signs Vitals: Temp Pulse Resp BP Pulse Ox 98.3 F 108 H 18 92/54 L 97 12/08/17 23:11 12/08/17 23:11 12/08/17 23:11 12/08/17 23:11 12/08/17 23:11 Course - Vital Signs Vital signs: Temp Pulse Resp BP Pulse Ox 98.3 F 108 H 18 92/54 L 97 12/08/17 23:11 12/08/17 23:11 12/08/17 23:11 12/08/17 23:11 12/08/17 23:11 Doctor's Discharge - Discharge Referrals: ANNIE HILLIARD MD [Primary Care Provider] - Follow up as needed
[2017-12-09 01:23] LABS: APPEARANCE,URINE SLIGHTLY-CLOUDY; BILIRUBIN,URINE NEGATIVE (NEGATIVE); COLOR,URINE AMBER; GLUCOSE, URINE NEGATIVE (NEGATIVE); KETONES,URINE 80 mg/dL (NEGATIVE); LEUKOCYTE ESTERASE,URINE TRACE (NEGATIVE); NITRITE,URINE NEGATIVE (NEGATIVE); PROTEIN,URINE NEGATIVE (NEGATIVE)
--- NOTE | 2017-12-09 02:15 | ER Document Report ---
ED General - General Chief Complaint: Vomiting Stated Complaint: DEHYDRATION Time Seen by Provider: 12/08/17 23:56 Mode of Arrival: Ambulatory Information source: Patient TRAVEL OUTSIDE OF THE [place] IN LAST 30 DAYS: No - HPI Patient complains to provider of: yesterday Onset: Other - 22 year old female that is 25 weeks who presents for evaluation of nausea and vomiting for one day. She notes 5 or 6 episodes of vomiting without any associated abdominal pain, she deniesfevers, she denies diarrhea or constipation, chest pain, light headedness or other symptoms in the past. She has not had any issues during her thus far, she has not tried anything to help with the symptoms. - Related Data Allergies/Adverse Reactions: amoxicillin [Amoxicillin] Allergy (Intermediate, Verified 06/17/16 10:27) Generalized rash Penicillins Allergy (Intermediate, Verified 06/17/16 10:27) Generalized rash Past Medical History - General Information source: Patient - Social History Smoking Status: Unknown if Ever Smoked Chew tobacco use (# tins/day): No Frequency of alcohol use: None Drug Abuse: None Family History: None Patient has suicidal ideation: No Patient has homicidal ideation: No Renal/ Medical History: Denies: Hx Peritoneal Dialysis Review of Systems - Review of Systems -: Yes All other systems reviewed and negative Physical Exam - Vital signs Vitals: Temp Pulse Resp BP Pulse Ox 98.3 F 108 H 18 92/54 L 97 12/08/17 23:11 12/08/17 23:11 12/08/17 23:11 12/08/17 23:11 12/08/17 23:11 - General General appearance: Appears well In distress: None - HEENT Head: Normocephalic Eyes: Normal, Scleral icterus Neck: Normal - Respiratory Respiratory status: No respiratory distress Chest status: Nontender Breath sounds: Normal Chest palpation: Normal - Cardiovascular Rhythm: Regular Heart sounds: Normal auscultation Murmur: No - Abdominal Inspection: Other - obviously gravid abdomen, rounded without tenderness, rebound or guarding - Back Back: Normal - Extremities General upper extremity: Normal inspection General lower extremity: Normal inspection - Neurological Neuro grossly intact: Yes Cognition: Normal Course - Re-evaluation Re-evalutation: 12/11/17 07:04 this 22 yo presented at 25 weeks for evaluation of nausea and vomiting. She recieved zofran through triage and appears well overall she is in no distress resting comfortably in her room on evaluation. Her abdominal examination is reassuring as there is no tenderness and she has not had any pain. Her urinalysis does not demonstrate any infection at this time but she is somewhat concentrated so believe she needs hydration. After drinking 2 cups of water, ambulating and remaining well appearing patient remained with benign abdominal examination. Bed side ultrasound demonstrated a well appearing IUP With appreciable heart beat 145 BPM Being that patient is tolerating PO, feels well and has benign abdomen will plan for discharge with OB follow up and a brief script for zofran. - Vital Signs Vital signs: Temp Pulse Resp BP Pulse Ox 97.6 F 72 18 106/68 96 12/09/17 02:24 12/09/17 02:24 12/09/17 02:24 12/09/17 02:27 12/09/17 02:24 - Laboratory Laboratory results interpreted by me: 12/09/17 00:48 Urine Ketones 80 H Urine Blood MODERATE H Urine Urobilinogen 4.0 H Ur Leukocyte Esterase TRACE H Urine HCG, Qual POSITIVE H Discharge - Discharge Clinical Impression: Nausea & vomiting Qualifiers: Vomiting type: unspecified Vomiting Intractability: non-intractable Qualified Code(s): R11.2 - Nausea with vomiting, unspecified Qualifiers: Weeks of gestation: 25 weeks Qualified Code(s): Z3A.25 - 25 weeks gestation of Condition: Good Disposition: HOME, SELF-CARE Instructions: Antinausea Medication ([facility]), Vomiting ([facility]) Additional Instructions: Your seen today in the emergency department for your vomiting, you had an evaluation including a physical exam and an ultrasound as well as a urine test. Use the Zofran prescribed you to treat her nausea, return for any worsening vomiting or abdominal pain. Call your OB doctor tomorrow to follow-up. Return for any fevers or chills. Prescriptions: Ondansetron [Zofran Odt 4 mg Tablet] 1 - 2 tab PO Q4H PRN #20 tab.rapdis PRN Reason: For Nausea/Vomiting Referrals: ANNIE HILLIARD MD [Primary Care Provider] - Follow up as needed
[2017-12-09 02:27] VITALS: BP 106/68
== END 2017-12-09 02:28 | disposition home or self-care (01) ==
LOC: ER 22:17
DX: O21.2 Late vomiting of pregnancy (principal); Z3A.25 25 weeks gestation of pregnancy; Z88.0 Allergy status to penicillin
CPT/HCPCS: 99284; 81025; 81001; S0119

== ENCOUNTER 2018-03-14 10:38 | Outpatient (CLI) | payer MEDICAID ==
--- NOTE | 2018-03-14 12:14 | Non Stress Test Report ---
Non Stress Test Datetime Report Generated by CPN: 03/14/2018 12:14 DEMOGRAPHIC EGA NST: 38.2 INDICATION Indication for Study: Intrauterine Growth Restriction; Ordered by Provider VITAL SIGNS Temperature - NST: 98.7 Pulse - NST: 84 RESP - NST: 18 NBPSYS NST: 104 NBPDIA NST: 56 MONITORING Monitor Explained: Monitor Explained; Test Explained; Patient Verbalized Understanding Time on Monitor: 03/14/2018 10:45 Time off Monitor: 03/14/2018 11:34 NST Duration: 49 NST INTERVENTIONS NST Interventions: PO Hydration; Reposition Patient Physician Notified NST: J LOPEZ, CNM REVIEWED STRIP BABY A: [id number] BABY A Movement : Present Contraction Frequency : NONE FHR Baseline : 135 Accelerations : 15X15 Decelerations : None Variability : Moderate 6-25bpm NST Review: Meets Criteria for Reactive NST NST Review and Verified By : Edda Roque RN NST Results: Reactive NST REPORT Report Trigger: Send Report
== END 2018-03-14 11:40 | disposition home or self-care (01) ==
LOC: LC 10:38
PROVIDERS: ATTEND Obstetrics & Gynecology
PROC: 4A1HXCZ Monitoring of Products of Conception, Cardiac Rate, External Approach (ICD-10-PCS; principal; 2018-03-14)
DX: O36.5930 Maternal care for other known or suspected poor fetal growth, third trimester, not applicable or unspecified (principal); Z3A.38 38 weeks gestation of pregnancy
CPT/HCPCS: 59025

== ENCOUNTER 2018-03-16 14:57 | Outpatient (CLI) | payer MEDICAID ==
--- NOTE | 2018-03-16 15:45 | Non Stress Test Report ---
Non Stress Test Datetime Report Generated by CPN: 03/16/2018 15:45 DEMOGRAPHIC EGA NST: 38.4 INDICATION Indication for Study: Decreased Movement MONITORING Monitor Explained: Monitor Explained; Test Explained; Patient Verbalized Understanding Time on Monitor: 03/16/2018 15:08 Time off Monitor: 03/16/2018 15:30 NST Duration: 22 NST INTERVENTIONS NST Interventions: PO Hydration; Reposition Patient Physician Notified NST: Ryder Ballard CNM BABY A: [id number] BABY A Movement : Present Contraction Frequency : none FHR Baseline : 135 Accelerations : 15X15 Decelerations : None Variability : Moderate 6-25bpm NST Review: Meets Criteria for Reactive NST NST Review and Verified By : KELLY Gould Results: Reactive NST REPORT Report Trigger: Send Report
== END 2018-03-16 15:46 | disposition home or self-care (01) ==
LOC: LC 14:57
PROVIDERS: ATTEND Student in an Organized Health Care Education/Training Program
PROC: 4A1HXCZ Monitoring of Products of Conception, Cardiac Rate, External Approach (ICD-10-PCS; principal; 2018-03-16)
DX: O36.8130 Decreased fetal movements, third trimester, not applicable or unspecified (principal); O47.1 False labor at or after 37 completed weeks of gestation; Z3A.38 38 weeks gestation of pregnancy
CPT/HCPCS: 59025

== ENCOUNTER 2018-03-22 06:12 | Inpatient (IN) | payer BC, MEDICAID ==
[2018-03-22] MEDS ORDERED: RINGERS SOLUTION,LACTATED 300 ML IV ONE (06:39)
[2018-03-22] MEDS ORDERED: OXYTOCIN/NORMAL SALINE 20 UNIT/1,000 ML RTUINJ IV PRN ×2 (06:39→13:44)
[2018-03-22 07:13] LABS: ABSOLUTE EOSINOPHILS # (AUTO) 0.1 10^3/uL (0.0-0.6); ABSOLUTE LYMPHOCYTES (AUTO) 1.9 10^3/uL (0.5-4.7); ABSOLUTE MONOCYTES (AUTO) 0.4 10^3/uL (0.1-1.4); ABSOLUTE NEUT (AUTO) 6.1 10^3/uL (1.7-8.2); BASOPHILS % (AUTO) 0.4 % (0-2); EOSINOPHILS % (AUTO) 1.6 % (0-6); HEMATOCRIT 29.9 % (36.0-47.0); HEMOGLOBIN 10.7 g/dL (12.0-15.5); LYMPHOCYTES % (AUTO) 22.2 % (13-45); MEAN CORPUSCULAR HGB CONC 35.9 g/dL (32.0-36.0); MEAN CORPUSCULAR VOLUME 95 fl (80-97); MONOCYTES % (AUTO) 4.8 % (3-13); PLATELET COUNT 189 10^3/uL (150-450); RED BLOOD COUNT 3.16 10^6/uL (3.72-5.28); RED CELL DISTRIBUTION WIDTH 13.7 % (11.5-14.0); TOTAL CELLS COUNTED % (AUTO) 100 %; WHITE BLOOD COUNT 8.6 10^3/uL (4.0-10.5)
[2018-03-22] MEDS: RINGERS SOLUTION,LACTATED 1,000 ML IV PRN ×3 (07:15→13:06)
[2018-03-22] MEDS ORDERED: MISOPROSTOL 0.1 MG TABLET ONE (07:45)
[2018-03-22] MEDS ORDERED: OXYTOCIN/NORMAL SALINE 20 UNIT/1,000 ML RTUINJ ONE (07:45)
[2018-03-22] MEDS ORDERED: LIDOCAINE 1% INJ-PF (10 MG/ML) 30 ML SDV ONE (07:45)
--- NOTE | 2018-03-22 08:42 | Admission Physical ---
Datetime Report Generated by CPN: 03/22/2018 08:41 CURRENT ADMISSION Chief Complaint: Scheduled Induction of Labor Indication for Induction: Not Applicable Admit Impression : Term, Intrauterine ; Induction of Labor Admit Plan: Initiate Labor Induction Protocol ALLERGIES Medication Allergies: Yes Medication Allergies: Penicillins/MO/Generalized dulce (03/22/2018); amoxicillin/MO/Generalized dulce (03/22/2018) Latex: No Latex Allergies OBSTETRICAL HISTORY EDC: 03/26/2018 00:00 : 3 Para: 2 Term: 2 : 0 SAB: 0 IAB: 0 Ectopic: 0 Livin Cesareans: 0 VBACs: 0 Multiple Births: 0 Gestational Diabetes: No Rh Sensitization: No Incompetent Cervix: No JENNY: No Infertility: No ART Treatment: No Uterine Anomaly: No IUGR: No Hx Previous C/S: No Macrosomia: No Hx Loss/Stillborn: No PIH: No Hx : No Placenta Previa/Abruption: No Depression/PP Depression: No PTL/PROM: No Post Hemorrhage: No Obstetrical History Comments: 11/02/14- 40.3 Male infant- epidural, vaccum assist, nuchal x1 06/17/16- Male infant SEE RECORDS Alcohol: No Marijuana : No Cocaine: No Other Illicit Drugs: No Cigarettes: Never Smoker. [id number] MEDICAL HISTORY Diabetes: No Blood Transfusion: No Pulmonary Disease (Asthma, TB): No Breast Disease: No Hypertension: No Biometrics Experimentalist Surgery: No Heart Disease: No Hosp/Surgery: Yes Autoimmune Disorder: No Anesthetic Complications: No Kidney Disease: No Abnormal Pap Smear: No Neuro/Epilepsy: No Psychiatric Disorders: No Other Medical Diseases: No Hepatitis/Liver Disease: No Significant Family History: No Varicosities/Phlebitis: No Trauma/Violence : No Thyroid Dysfunction: No INFECTIOUS HISTORY Gonorrhea: No Genital Herpes: No Chlamydia: No Tuberculosis: No Syphilis: No Hepatitis: No HIV/AIDS Exposure: No Rash or Viral Illness: No HPV: No PHYSICAL EXAM General: Normal HEENT: Normal Neurologic: Normal Thyroid: Normal Heart: Normal Lungs: Normal Breast: Normal Back: Normal Abdomen: Normal Genitourinary Exam: Normal Extremities: Normal DTRs: Normal Pelvic Type: Adequate Vital Signs: Reviewed; Within Normal Limits MEMBRANES Membranes: Intact FETUS A EGA: 39.3 Monitoring: External US FHR- Baseline: 135 Variability: Moderate 6-25bpm Accelerations: 15X15 Decelerations: None FHR Category: Category I Admit Comment: at 39.3 wks here for IOL. Pt noted to be 3-4 cm in the office and added on for induction. Pt doing well this morning, plans an epidural when in active labor. GBS Positive. Pitocin infusing. Attending MD is Dr Caldera PLANS FOR LABOR AND DELIVERY Labor and Delivery: None Pain Management: Epidural Feeding Preference: Breast Benefit of Breast Feed Discussed: Yes Circumcision: N/A INFORMED CONSENT Assignment: Jarrod Caldera MD Signature: with User ID: Paul : with User ID: [email or web address]
--- NOTE | 2018-03-22 08:49 | Admission Physical ---
Datetime Report Generated by CPN: 03/22/2018 08:49 CURRENT ADMISSION Chief Complaint: Scheduled Induction of Labor Indication for Induction: Not Applicable Admit Impression : Term, Intrauterine ; Induction of Labor Admit Plan: Initiate Labor Induction Protocol ALLERGIES Medication Allergies: Yes Medication Allergies: Penicillins/MO/Generalized dulce (03/22/2018); amoxicillin/MO/Generalized dulce (03/22/2018) Latex: No Latex Allergies OBSTETRICAL HISTORY EDC: 03/26/2018 00:00 : 3 Para: 2 Term: 2 : 0 SAB: 0 IAB: 0 Ectopic: 0 Livin Cesareans: 0 VBACs: 0 Multiple Births: 0 Gestational Diabetes: No Rh Sensitization: No Incompetent Cervix: No JENNY: No Infertility: No ART Treatment: No Uterine Anomaly: No IUGR: No Hx Previous C/S: No Macrosomia: No Hx Loss/Stillborn: No PIH: No Hx : No Placenta Previa/Abruption: No Depression/PP Depression: No PTL/PROM: No Post Hemorrhage: No Obstetrical History Comments: 11/02/14- 40.3 Male infant- epidural, vaccum assist, nuchal x1 06/17/16- Male infant SEE RECORDS Alcohol: No Marijuana : No Cocaine: No Other Illicit Drugs: No Cigarettes: Never Smoker. [id number] MEDICAL HISTORY Diabetes: No Blood Transfusion: No Pulmonary Disease (Asthma, TB): No Breast Disease: No Hypertension: No Pit Manager Surgery: No Heart Disease: No Hosp/Surgery: Yes Autoimmune Disorder: No Anesthetic Complications: No Kidney Disease: No Abnormal Pap Smear: No Neuro/Epilepsy: No Psychiatric Disorders: No Other Medical Diseases: No Hepatitis/Liver Disease: No Significant Family History: No Varicosities/Phlebitis: No Trauma/Violence : No Thyroid Dysfunction: No INFECTIOUS HISTORY Gonorrhea: No Genital Herpes: No Chlamydia: No Tuberculosis: No Syphilis: No Hepatitis: No HIV/AIDS Exposure: No Rash or Viral Illness: No HPV: No PHYSICAL EXAM General: Normal HEENT: Normal Neurologic: Normal Thyroid: Normal Heart: Normal Lungs: Normal Breast: Normal Back: Normal Abdomen: Normal Genitourinary Exam: Normal Extremities: Normal DTRs: Normal Pelvic Type: Adequate Vital Signs: Reviewed; Within Normal Limits MEMBRANES Membranes: Intact FETUS A EGA: 39.3 Monitoring: External US FHR- Baseline: 135 Variability: Moderate 6-25bpm Accelerations: 15X15 Decelerations: None FHR Category: Category I Admit Comment: Correction, GBS negative status PLANS FOR LABOR AND DELIVERY Labor and Delivery: None Pain Management: Epidural Feeding Preference: Breast Benefit of Breast Feed Discussed: Yes Circumcision: N/A INFORMED CONSENT Assignment: Jarrod Caldera MD Signature: with User ID: Paul : with User ID: Paul
[2018-03-22 09:49] LABS: APPEARANCE,URINE CLOUDY; BILIRUBIN,URINE NEGATIVE (NEGATIVE); GLUCOSE, URINE NEGATIVE (NEGATIVE); KETONES,URINE NEGATIVE (NEGATIVE); LEUKOCYTE ESTERASE,URINE LARGE (NEGATIVE); NITRITE,URINE NEGATIVE (NEGATIVE); PROTEIN,URINE 30 mg/dL (NEGATIVE); URINE SPECIFIC GRAVITY 1.028
[2018-03-22 09:51] LABS: COLOR,URINE YELLOW
[2018-03-22 10:09] LABS: URINE AMPHETAMINES SCREEN NEGATIVE; URINE BARBITURATES SCREEN NEGATIVE; URINE BENZODIAZEPINES SCREEN NEGATIVE; URINE COCAINE SCREEN NEGATIVE; URINE MARIJUANA (THC) SCREEN NEGATIVE; URINE METHADONE SCREEN NEGATIVE; URINE PHENCYCLIDINE SCREEN NEGATIVE
[2018-03-22] MEDS ORDERED: PHENYLEPHRINE HCL INJ/PF 10 MG/1 ML SDV ONE (10:28)
[2018-03-22] MEDS ORDERED: EPHEDRINE SULFATE INJ 50 MG/1 ML AMPULE ONE (10:28)
[2018-03-22] MEDS ORDERED: FENTANYL CITRATE INJ/PF 100 MCG/2 ML AMPUL ONE (10:28)
[2018-03-22] MEDS ORDERED: FENTANYL/BUPIVACAINE/NS/PF 300 MCG/150 ML RTUINJ EPI ONE (10:29)
[2018-03-22] MEDS ORDERED: BUPIVACAINE HCL 0.5 % INJ/PF 30 ML SDV ONE (10:29)
--- NOTE | 2018-03-22 11:46 | L&D Progress Notes ---
PROGRESS NOTES Datetime Report Generated by CPN: 03/22/2018 11:46 PROGRESS NOTE Impression: Normal Progression of Labor; Reassuring Heart Rate Procedures: Artificial ROM; Sterile Vag Exam Plan: Continue Present Management; Induction; Anticipate Vaginal Delivery Vital Signs : Reviewed; Within Normal Limits Comment: Epidural in place and pt is comfortable. Pitocin infusing. AROM attempted w/scant return of blood tinged fluid. Position changes encouraged. Anticipate . Dr Caldera is the attending MD VAGINAL EXAM Dilatation: 6 Effacement: 90 Station: -1 Contractions: 1-2 min LAST VAGINAL EXAM-NURSING Dilitation: 6.0 Dilitation: 4.5 Dilitation: 4.0 Effacement: 90 Effacement: 60 Effacement: 60 Station: -1 Station: -2 Station: -2 Contractions: pt not feeling any contractions MEMBRANES Membranes: Ruptured Membranes: Intact Amniotic Fluid Color: Bloody FETUS A FHR - Baseline: 130 Variability: Moderate 6-25bpm Accelerations: 15X15 Decelerations: Variable FHR Comments: occassional variable SIGNATURE SIGNATURE: 10,[id number];13,[id number];14,[id number] SIGNATURE: 14,[id number];13,[id number] SIGNATURE: 13,[id number];14,[id number] SIGNATURE: 14,[id number] SIGNATURE: 14,[id number] Assignment: Jarrod Caldera MD Signature: with User ID: Paul : with User ID: Paul
--- NOTE | 2018-03-22 12:20 | Warning Signs in Babies ---
VOD Warning Signs Datetime Report Generated by N: 03/22/2018 12:20 VOD#[id number] -Warning Signs in Babies: Viewed with Parent(s)/Family (03/14/2018 10:37:Claudia Zhu)
[2018-03-22] MEDS ORDERED: MEASLES,MUMPS&RUBELLA VACC/PF 0.5 ML VIAL SUBCUT PRN (13:44)
[2018-03-22] MEDS ORDERED: DIBUCAINE 1% OINTMENT 28 GM TP PRN (13:44)
[2018-03-22] MEDS ORDERED: ACETAMINOPHEN WITH CODEINE #3 TABLET PO PRN ×2 (13:44)
[2018-03-22] MEDS ORDERED: BENZOCAINE/MENTHOL AEROSOL SPRAY 56 ML TOP PRN (13:44)
[2018-03-22] MEDS ORDERED: ZOLPIDEM TARTRATE 5 MG TABLET PO PRN (13:44)
[2018-03-22] MEDS ORDERED: MISOPROSTOL 0.2 MG TABLET PO PRN (13:44)
[2018-03-22] MEDS ORDERED: DIPH/PERTUSS(ACELL)/TETANUS VAC/PF 0.5 ML SYR (>=10YO) IM PRN (13:44)
[2018-03-22] MEDS: IBUPROFEN 800 MG TABLET PO SCH ×2 (15:04→22:50)
[2018-03-22] MEDS ORDERED: IBUPROFEN 800 MG TABLET ONE (15:07)
--- NOTE | 2018-03-22 15:23 | Delivery Summary ---
Del Sum A-C Datetime Report Generated by CPN: 03/22/2018 15:22 DELIVERY PERSONNEL DELIVERY PERSONNEL: [id number] Delivery Doctor:: Ximena Ballard CNM Nurse Footwear Sales Associate Certified:: Ximena Ballard CNM Labor and Delivery Nurse:: Claudia Zhu RNundercoater Nurse:: RAMON Cast Student Observers:: Rosa Vasquez RN Pottery Decoration Designer/MACHINE TOOL MECHANIC: Vivien Barrera CNA II Additional Personnel: : Edda Roque RN MATERNAL INFORMATION Delivery Anesthesia: Epidural Medications After Delivery: Pitocin Bolus-Please Comment Meds After Delivery Comment: Pitocin 20mu in 1000ml LR Maternal Complications: None; Abnormal Cord Length Provider Comments: of viable female, crying and in stable condition. Delivered YAMILA and placed on pts abdoman. Umbilical cord wrapped around baby's feet. Cord clamped and cut after one minute. Cord blood obtained. Placenta S/C/I, IV Pitocin and 200 mcg SL Cytotec given. EBL 100 ml. Repair of first degree laceration done. FF w/ decreased lochia, mother and baby in stable condition. She plans to breastfeed. Attending MD is Dr Caldera. LABOR SUMMARY EDC: 03/26/2018 00:00 No. Babies in Womb: 1 Attempted: No Labor Anesthesia: Epidural LABOR INFORMATION Reason for Induction: Other Reason for Induction- Other: elective Onset of Labor: 03/22/2018 11:39 Complete Dilatation: 03/22/2018 13:16 Oxytocin: Induction Group B Beta Strep: neg Antibiotics # of Doses: na Antibiotics Time of Last Dose: na Name of Antibiotic Given: na Steroids Given: None Reason Steroids Not Administered: Not Applicable MEMBRANES Membranes Rupture Method: Artificial Rupture of Membranes: 03/22/2018 11:40 Length of Rupture (hr): 1.72 Amniotic Fluid Color: Bloody Amniotic Fluid Amount: Scant Amniotic Fluid Odor: Normal STAGES OF LABOR Stage 1 hr: 1 Stage 1 min: 37 Stage 2 hr: 0 Stage 2 min: 7 Stage 3 hr: 0 Stage 3 min: 4 Total Time in Labor hr: 1 Total Time in Labor min: 48 VAGINAL DELIVERY Episiotomy: None Laceration #1: Perineal Laceration Extension #1: First Degree Laceration Repair: Yes Laceration Repair Note: 1st degree laceration made hemostatic by placing a figure 8 stitch using 3.0 Vicryl. Pt tolerated repair well Sponge Count Correct: N/A Sharps Count Correct: N/A CSECTION DELIVERY Primary Indication: N/A Secondary Indication: N/A CSection Incidence: N/A Labor: N/A Elective: N/A CSection Incision: N/A BABY A INFORMATION Delivery Date/Time: 03/22/2018 13:23 Method of Delivery: Vaginal Born in Route : No : N/A Forceps: N/A Vacuum Extraction: N/A Shoulder Dystocia : Yes PRESENTATION/POSITION BABY A Presentation: Cephalic Cephalic Presentation: Vertex Vertex Position: Left Occipital Transverse Breech Presentation: N/A PLACENTA INFORMATION BABY A Placenta Delivery Time : 03/22/2018 13:27 Placenta Method of Delivery: Spontaneous Placenta Status: Delivered SCORES BABY A Heart Rate 1 min: >100 bpm Resp Effort 1 min: Good Cry Reflex Irritability 1 min: Cough or Sneeze or Pulls Away Muscle Tone 1 min: Active Motion Color 1 min: Blue/Pale Resuscitation Effort 1 min: Tactile Stimulation SCORE 1 MIN: 8 Heart Rate 5 min: >100 bpm Resp Effort 5 min: Good Cry Reflex Irritability 5 min: Cough or Sneeze or Pulls Away Muscle Tone 5 min: Active Motion Color 5 min: Body [place], Extremities Blue Resuscitation Effort 5 min: N/A; Tactile Stimulation SCORE 5 MIN: 9 Resuscitation Effort 10 min: N/A INFANT INFORMATION BABY A Gestational Age at Delivery: 39.3 Gestational Status: Full Term- 39- 40.6 Weeks Outcome : Liveborn Infant Condition : Stable Infant Sex: Female IDENTIFICATION BABY A Infant Verification Date/Time: 03/22/2018 13:56 ID Band Number: [id number] Mother's Name Verified: Yes Infant RN Verifying Infant: Leny Camp RNC Additional Verifying Personnel: Claudia Zhu RNC WEIGHT/LENGTH BABY A Infant Birthweight (gm): 2700 Weight (lb): 5 Weight (oz): 15 Length (in): 19.25 Infant Length (cm): 48.90 CORD INFORMATION BABY A No. Cord Vessels: 3 Nuchal Cord : N/A Cord Blood Taken: Yes-For Eval (Mom's Blood Type - or O+) Suction: Mouth; Nose ASSESSMENT BABY A Infant Complications: None Physical Findings at Delivery: Within Normal Limits Respirations: Appears Normal Skin to Skin: Yes Wind Farm Support Specialist/ALS Called : No BABY B INFORMATION : N/A SIGNATURES Assignment: Jarrod Caldera MD Signature: with User ID: Paul : with User ID: Paul
[2018-03-22] MEDS: FERROUS SULFATE 325 MG TABLET PO SCH (17:41)
[2018-03-22] MEDS: DOCUSATE SODIUM 100 MG CAPSULE PO SCH (17:41)
[2018-03-23] MEDS: IBUPROFEN 800 MG TABLET PO SCH ×4 (00:03→21:09)
[2018-03-23 07:04] LABS: HEMATOCRIT 28.6 % (36.0-47.0); HEMOGLOBIN 10.3 g/dL (12.0-15.5); MEAN CORPUSCULAR HEMOGLOBIN 34.3 pg (27.0-33.4); MEAN CORPUSCULAR HGB CONC 35.9 g/dL (32.0-36.0); MEAN CORPUSCULAR VOLUME 96 fl (80-97); PLATELET COUNT 168 10^3/uL (150-450); RED BLOOD COUNT 2.99 10^6/uL (3.72-5.28); RED CELL DISTRIBUTION WIDTH 13.9 % (11.5-14.0)
[2018-03-23] MEDS: PRENATAL VITAMIN W DHA CAPSULE PO SCH (09:05)
[2018-03-23] MEDS: SENNOSIDES/DOCUSATE 8.6-50 MG 1 EACH TABLET PO SCH (09:05)
[2018-03-23] MEDS: FERROUS SULFATE 325 MG TABLET PO SCH ×2 (09:05→17:04)
[2018-03-23] MEDS: DOCUSATE SODIUM 100 MG CAPSULE PO SCH ×2 (09:05→17:04)
--- NOTE | 2018-03-23 10:57 | PDOC PROGRESS REPORT ---
Subjective-OB Progress Note for:: 03/23/18 Subjective: Pt doing well, no concerns. She reports light bleeding, regular diet and no difficulty voiding. Physical Exam (OB) Vital Signs: Temp Pulse Resp BP Pulse Ox 97.8 F 55 L 16 105/55 L 97 03/23/18 07:59 03/23/18 07:59 03/23/18 07:59 03/23/18 07:59 03/23/18 07:59 Intake & Output 03/22/18 03/23/18 03/24/18 06:59 06:59 06:59 Intake Total 3332 480 Balance 3332 480 Weight 66.2 kg - Abdomen Description: Soft, Round Hernia Present: No Fundal Description: Firm, Midline Fundal Height: u/u - u/2 Objective-Diagnostic Laboratory: 03/23/18 06:50 03/23/18 06:50 WBC 11.0 H RBC 2.99 L Hgb 10.3 L Hct 28.6 L MCV 96 MCH 34.3 H MCHC 35.9 RDW 13.9 Plt Count 168 Assessment and Plan(PN) - Assessment and Plan (1) Vaginal delivery Is this a current diagnosis for this admission?: Yes - Time Spent with Patient Time with patient: Less than 15 minutes Medications reviewed and adjusted accordingly: Yes - Disposition Anticipated Discharge: Home Within: within 24 hours
[2018-03-24] MEDS: IBUPROFEN 800 MG TABLET PO SCH (05:14)
[2018-03-24 08:24] VITALS: BP 108/72
[2018-03-24] MEDS: SENNOSIDES/DOCUSATE 8.6-50 MG 1 EACH TABLET PO SCH (09:00)
[2018-03-24] MEDS: FERROUS SULFATE 325 MG TABLET PO SCH (09:00)
[2018-03-24] MEDS: PRENATAL VITAMIN W DHA CAPSULE PO SCH (09:00)
[2018-03-24] MEDS: DOCUSATE SODIUM 100 MG CAPSULE PO SCH (09:00)
--- NOTE | 2018-03-24 09:27 | PDOC DISCHARGE SUMMARY ---
Final Diagnosis Discharge Date: 03/24/18 - Final Diagnosis (1) Obstetrical laceration Is this a current diagnosis for this admission?: Yes (2) Vaginal delivery Is this a current diagnosis for this admission?: Yes Discharge Data - Discharge Medication Prescriptions: Ibuprofen [Motrin 800 mg Tablet] 800 mg PO Q8HP PRN #60 tablet PRN Reason: Home Medications: Comb No.42/Folic Acid [Prena1 Chew Tablet] 1 tab PO DAILY 09/03/14 Ibuprofen [Motrin 800 mg Tablet] 800 mg PO Q8HP PRN #60 tablet 03/24/18 Procedures: NST Intrapartum Procedure(s): Spontaneous Vaginal Delivery Laceration-Degree: 1st - Diagnosis Test Laboratory: Temp Pulse Resp BP Pulse Ox 97.8 F 66 16 108/72 95 03/24/18 08:05 03/24/18 08:05 03/24/18 08:05 03/24/18 08:05 03/24/18 08:05 03/22/18 03/22/18 03/23/18 06:49 07:38 06:50 RBC 3.16 L 2.99 L Hgb 10.7 L 10.3 L Hct 29.9 L 28.6 L Urine Opiates Screen NEGATIVE - Discharge information/Instructions Discharge Activity: Balance Activity w/Rest, Pelvic Rest Discharge Diet: Regular Disposition: HOME, SELF-CARE Follow up with: [facility] in: 4, Weeks
== END 2018-03-24 11:51 | disposition home or self-care (01) | DRG 807 ==
LOC: LR 06:12 → 2S 15:26
PROVIDERS: ADMIT Obstetrics & Gynecology; ATTEND Obstetrics & Gynecology
PROC: 10E0XZZ Delivery of Products of Conception, External Approach (ICD-10-PCS; principal; 2018-03-22)
PROC: 0HQ9XZZ Repair Perineum Skin, External Approach (ICD-10-PCS; 2018-03-22)
PROC: 4A1HXCZ Monitoring of Products of Conception, Cardiac Rate, External Approach (ICD-10-PCS; 2018-03-22)
DX: O70.0 First degree perineal laceration during delivery (principal); Z37.0 Single live birth; O99.824 Streptococcus B carrier state complicating childbirth; O69.2XX0 Labor and delivery complicated by other cord entanglement, with compression, not applicable or unspecified; Z3A.39 39 weeks gestation of pregnancy; Z88.0 Allergy status to penicillin
CPT/HCPCS: 36415; 80307; 81005; 85025; 85027; 86592; 86850; 86900; 86901; 94760; J2370; J2590; J3010; J3490

== ENCOUNTER 2018-05-28 17:54 | Emergency (ER) | payer MEDICAID ==
--- NOTE | 2018-05-28 18:55 | ER Document Report ---
ED Medical Screen (RME) - General Chief Complaint: Pain With Urination Stated Complaint: CHILLS, FEVER, URINARY ISSUE Time Seen by Provider: 05/28/18 18:49 Primary Care Provider: BENJIE JUAREZ MD [Primary Care Provider] - Follow up as needed Notes: 23-year-old female patient with right flank pain, pressure urination, fever and chills. She states her temperature went to 106. She has been taking Azo- Standard and Tylenol. I have greeted and performed a rapid initial assessment of this patient. A comprehensive ED assessment and evaluation of the patient, analysis of test results and completion of the medical decision making process will be conducted by additional ED providers. TRAVEL OUTSIDE OF THE [place] IN LAST 30 DAYS: No - Related Data Allergies/Adverse Reactions: amoxicillin [Amoxicillin] Allergy (Intermediate, Verified 03/22/18 06:32) Generalized rash Penicillins Allergy (Intermediate, Verified 03/22/18 06:32) Generalized rash Past Medical History - Social History Chew tobacco use (# tins/day): No Frequency of alcohol use: None Renal/ Medical History: Denies: Hx Peritoneal Dialysis Physical Exam - Vital signs Vitals: Temp Pulse Resp BP Pulse Ox 99.7 F 132 H 13 109/71 100 05/28/18 18:05 05/28/18 18:05 05/28/18 18:05 05/28/18 18:05 05/28/18 18:05 Course - Vital Signs Vital signs: Temp Pulse Resp BP Pulse Ox 99.7 F 132 H 13 109/71 100 05/28/18 18:05 05/28/18 18:05 05/28/18 18:05 05/28/18 18:05 05/28/18 18:05 Doctor's Discharge - Discharge Referrals: BENJIE JUAREZ MD [Primary Care Provider] - Follow up as needed
[2018-05-28] MEDS ORDERED: NORMAL SALINE 1000 ML 1,000 ML IV ONE ×2 (18:56→20:27)
[2018-05-28 19:22] LABS: ABSOLUTE MONOCYTES (AUTO) 0.8 10^3/uL (0.1-1.4); ABSOLUTE NEUT (AUTO) 11.1 10^3/uL (1.7-8.2); BASOPHILS % (AUTO) 0.3 % (0-2); EOSINOPHILS % (AUTO) 0.1 % (0-6); HEMATOCRIT 34.8 % (36.0-47.0); HEMOGLOBIN 11.9 g/dL (12.0-15.5); LYMPHOCYTES % (AUTO) 8.1 % (13-45); MEAN CORPUSCULAR HEMOGLOBIN 31.7 pg (27.0-33.4); MEAN CORPUSCULAR HGB CONC 34.2 g/dL (32.0-36.0); MEAN CORPUSCULAR VOLUME 93 fl (80-97); MONOCYTES % (AUTO) 6.2 % (3-13); PLATELET COUNT 221 10^3/uL (150-450); RED BLOOD COUNT 3.74 10^6/uL (3.72-5.28); RED CELL DISTRIBUTION WIDTH 12.3 % (11.5-14.0); SEGMENTED NEUTROPHILS % (AUTO) 85.3 % (42-78); TOTAL CELLS COUNTED % (AUTO) 100 %
[2018-05-28] MEDS ORDERED: KETOROLAC TROMETHAMINE INJ/PF 30 MG/1 ML SDV IV ONE (19:22)
[2018-05-28] MEDS ORDERED: ONDANSETRON HCL INJ/PF 4 MG/2 ML SDV IV ONE (19:22)
[2018-05-28 19:27] LABS: APPEARANCE,URINE TURBID; BILIRUBIN,URINE NEGATIVE (NEGATIVE); COLOR,URINE AMBER; GLUCOSE, URINE NEGATIVE (NEGATIVE); KETONES,URINE NEGATIVE (NEGATIVE); LEUKOCYTE ESTERASE,URINE LARGE (NEGATIVE); NITRITE,URINE POSITIVE (NEGATIVE); PROTEIN,URINE >=500 mg/dL (NEGATIVE); URINE SPECIFIC GRAVITY 1.014
[2018-05-28 19:46] LABS: ALANINE AMINOTRANSFERASE 64 U/L (9-52); ALBUMIN 4.2 g/dL (3.5-5.0); ALKALINE PHOSPHATASE 210 U/L (38-126); ANION GAP 9 (5-19); ASPARTATE AMINO TRANSFERASE 42 U/L (14-36); BILIRUBIN,DIRECT 0.7 mg/dL (0.0-0.4); BILIRUBIN,TOTAL 1.2 mg/dL (0.2-1.3); BLOOD UREA NITROGEN 11 mg/dL (7-20); CARBON DIOXIDE 27 mmol/L (22-30); CHLORIDE 103 mmol/L (98-107); GLUCOSE 111 mg/dL (75-110); POTASSIUM 3.2 mmol/L (3.6-5.0); SODIUM 138.8 mmol/L (137-145); TOTAL PROTEIN 6.9 g/dL (6.3-8.2)
--- NOTE | 2018-05-28 19:46 | ER Document Report ---
ED GI/ - General Chief Complaint: Pain With Urination Stated Complaint: CHILLS, FEVER, URINARY ISSUE Time Seen by Provider: 05/28/18 18:49 Primary Care Provider: BENJIE JUAREZ MD [Primary Care Provider] - 05/30/18 Notes: Patient is a 23 year old female that comes to the emergency department for chief complaint of right flank pain, "pressure" with urination, nausea, and fever/chills for the past 3-4 days. Symptoms gradually worsening. She denies abdominal pain, vomiting, vaginal discharge. Reports slight vaginal bleeding. She denies any surgeries, daily medications, history of kidney stones, or any other past medical history. TRAVEL OUTSIDE OF THE [place] IN LAST 30 DAYS: No - Related Data Allergies/Adverse Reactions: amoxicillin [Amoxicillin] Allergy (Intermediate, Verified 03/22/18 06:32) Generalized rash Penicillins Allergy (Intermediate, Verified 03/22/18 06:32) Generalized rash Past Medical History - General Information source: Patient - Social History Smoking Status: Never Smoker Chew tobacco use (# tins/day): No Frequency of alcohol use: None Lives with: Family Family History: None Patient has suicidal ideation: No Patient has homicidal ideation: No - Medical History Medical History: Negative Renal/ Medical History: Denies: Hx Peritoneal Dialysis Surgical Hx: Negative - Immunizations Immunizations up to date: Yes Hx Diphtheria, Pertussis, Tetanus Vaccination: Yes Review of Systems - Review of Systems Constitutional: No symptoms reported EENT: No symptoms reported Cardiovascular: No symptoms reported Respiratory: No symptoms reported Gastrointestinal: See HPI Genitourinary: See HPI Female Genitourinary: See HPI Musculoskeletal: No symptoms reported Skin: No symptoms reported Hematologic/Lymphatic: No symptoms reported Neurological/Psychological: No symptoms reported Physical Exam - Vital signs Vitals: Temp Pulse Resp BP Pulse Ox 99.7 F 132 H 13 109/71 100 05/28/18 18:05 05/28/18 18:05 05/28/18 18:05 05/28/18 18:05 05/28/18 18:05 - Notes Notes: GENERAL: Alert. Appears uncomfortable, lying on her side, slightly disheveled HEAD: Normocephalic, atraumatic. EYES: Pupils equal, round, and reactive to light. Extraocular movements intact. ENT: Oral mucosa dry with cracked lips, tongue midline. Oropharynx unremarkable. Airway patent. Nares patent, no nasal septal hematoma, TM's intact. NECK: Full range of motion. Supple. Trachea midline. LUNGS: Clear to auscultation bilaterally, no wheezes, rales, or rhonchi. No respiratory distress. HEART: Tachycardia, normal rhythm, no murmur ABDOMEN: There is mild generalized tenderness in the lower abdomen, upper abdomen benign, no rigidity, guarding, or distention. GENITOURINARY: Deferred EXTREMITIES: Moves all 4 extremities spontaneously. No edema, normal radial and dorsalis pedis pulses bilaterally. No cyanosis. BACK: no cervical, thoracic, lumbar midline tenderness. No saddle anesthesia, normal distal neurovascular exam. Mild right-sided CVA tenderness, left unremarkable. NEUROLOGICAL: Alert and oriented x3. Normal speech. [cranial nerves II through XII grossly intact]. PSYCH: Normal affect, normal mood. SKIN: Warm, dry, normal turgor. No rashes or lesions noted. Course - Re-evaluation Re-evalutation: Patient mildly ill-appearing but not toxic in appearance. She is conversational. After Toradol, Zofran, IV fluids, she is sitting up, states she feels much better. Fever did come back, she had to be treated with Tylenol. After this an additional fluids tachycardia resolved. CBC shows leukocytosis at 13,000 with elevation of neutrophils but no bandemia. Chemistry nonspecific, urinalysis shows positive nitrites, large amount of white blood cells, many white blood cell clumps. Patient with dysuria worsening for 3-4 days gradually with development of fever and nausea. She does have right CVA tenderness which is mild. Abdomen is benign. Based on progression of symptoms I have low suspicion of infected ureterolithiasis. Workup and evaluation is consistent with pyelonephritis. Blood cultures and urine cultures pending. Given Rocephin initially. Reevaluated patient at bedside. She states she feels good and she wants to go home. Patient will be discharged on antibiotics but she was given strict return precautions, cultures are pending, patient states she will follow-up with primary care and return if she worsens, details were discussed. Stable at time of discharge. - Vital Signs Vital signs: Temp Pulse Resp BP Pulse Ox 98.1 F 132 H 14 101/64 98 05/28/18 21:57 05/28/18 18:05 05/28/18 21:56 05/28/18 21:57 05/28/18 21:56 - Laboratory Result Diagrams: 05/28/18 19:00 05/28/18 19:00 Laboratory results interpreted by me: 05/28/18 05/28/18 05/28/18 19:00 19:00 19:00 WBC 13.0 H Hgb 11.9 L Hct 34.8 L Seg Neutrophils % 85.3 H Lymphocytes % 8.1 L Absolute Neutrophils 11.1 H Potassium 3.2 L Glucose 111 H Direct Bilirubin 0.7 H AST 42 H ALT 64 H Alkaline Phosphatase 210 H Urine Protein >=500 H Urine Blood LARGE H Urine Nitrite POSITIVE H Urine Urobilinogen 4.0 H Ur Leukocyte Esterase LARGE H Discharge - Discharge Clinical Impression: Pyelonephritis Fever Qualifiers: Fever type: unspecified Qualified Code(s): R50.9 - Fever, unspecified Condition: Stable Disposition: HOME, SELF-CARE Additional Instructions: Your workup indicates a kidney infection. You have begun antibiotics for this, complete antibiotic therapy at home as prescribed. You have been provided with some pain medication, do not combine with alcohol or drive while taking. Do not combine with other sedating medication. Take nausea medication as prescribed. Stay hydrated. Follow-up closely with primary care. Return if you worsen including increased pain, vomiting, spiking fevers, or any other concerning or worsening symptoms. Prescriptions: Cephalexin Monohydrate [Keflex 500 mg Capsule] 500 mg PO QID #28 capsule Promethazine HCl [Phenergan 25 mg Tablet] 25 mg PO Q6H PRN #20 tablet PRN Reason: Referrals: BENJIE JUAREZ MD [Primary Care Provider] - 05/30/18
[2018-05-28] MEDS ORDERED: CEFTRIAXONE INJ 1000 MG VIAL IV ONE (20:00)
[2018-05-28] MEDS ORDERED: ACETAMINOPHEN 325 MG TABLET PO ONE (20:03)
[2018-05-28] MEDS ORDERED: POTASSIUM CHLORIDE 10 MEQ CAPSULE.ER PO ONE (20:27)
[2018-05-28] MEDS ORDERED: ONDANSETRON ODT 4 MG TAB (6 TAB/ER DISP) PO PRN (21:34)
[2018-05-28] MEDS ORDERED: HYDROCODONE/ACETAMINOPHEN 5-325 MG (6 TAB/ER DISP) PO PRN (21:34)
[2018-05-28 21:59] VITALS: BP 101/64
== END 2018-05-28 22:15 | disposition home or self-care (01) ==
LOC: ER 17:54
DX: N12 Tubulo-interstitial nephritis, not specified as acute or chronic (principal); R50.9 Fever, unspecified; R11.0 Nausea; N93.9 Abnormal uterine and vaginal bleeding, unspecified; R00.0 Tachycardia, unspecified; Z88.0 Allergy status to penicillin
CPT/HCPCS: 99283; 96361; 96375; 96365; 36415; 87040; 87086; 84703; 85025; 87088; 80053; 81001; 87186; J3490; J1885; J0696; J2405; J7030

== ENCOUNTER 2019-03-11 15:30 | Emergency (ER) | payer MEDICAID, OTHER ==
--- NOTE | 2019-03-11 15:40 | ER Document Report ---
ED Medical Screen (RME) - General Chief Complaint: Vaginal Bleeding Stated Complaint: VAGINAL BLEEDING Time Seen by Provider: 03/11/19 15:37 Primary Care Provider: BENJIE JUAREZ MD [Primary Care Provider] - Follow up as needed Mode of Arrival: Ambulatory Information source: Patient Notes: Patient states that she had been on the control patch for 6 months and then took the patch off 3 days ago. Patient states she is been having vaginal bleeding for the past month. Patient does report some dizziness. Patient complains of lower pelvic cramping. I have greeted and performed a rapid initial assessment of this patient. A comprehensive ED assessment and evaluation of the patient, analysis of test results and completion of the medical decision making process will be conducted by additional ED providers. TRAVEL OUTSIDE OF THE [place] IN LAST 30 DAYS: No - Related Data Allergies/Adverse Reactions: amoxicillin [Amoxicillin] Allergy (Intermediate, Verified 03/22/18 06:32) Generalized rash Penicillins Allergy (Intermediate, Verified 03/22/18 06:32) Generalized rash Past Medical History Renal/ Medical History: Denies: Hx Peritoneal Dialysis - Immunizations Immunizations up to date: Yes Hx Diphtheria, Pertussis, Tetanus Vaccination: Yes Physical Exam - Vital signs Vitals: Temp Pulse Resp BP Pulse Ox 97.9 F 92 16 125/88 H 98 03/11/19 15:35 03/11/19 15:35 03/11/19 15:35 03/11/19 15:35 03/11/19 15:35 - General General appearance: Appears well, Alert In distress: None - Abdominal Tenderness: Tender - Lower pelvic Course - Vital Signs Vital signs: Temp Pulse Resp BP Pulse Ox 97.9 F 92 16 125/88 H 98 03/11/19 15:35 03/11/19 15:35 03/11/19 15:35 03/11/19 15:35 03/11/19 15:35 Doctor's Discharge - Discharge Referrals: BENJIE JUAREZ MD [Primary Care Provider] - Follow up as needed
[2019-03-11 16:07] LABS: ABSOLUTE BASOPHILS # (AUTO) 0.1 10^3/uL (0.0-0.2); ABSOLUTE EOSINOPHILS # (AUTO) 1.4 10^3/uL (0.0-0.6); ABSOLUTE LYMPHOCYTES (AUTO) 2.7 10^3/uL (0.5-4.7); ABSOLUTE MONOCYTES (AUTO) 0.4 10^3/uL (0.1-1.4); ABSOLUTE NEUT (AUTO) 6.4 10^3/uL (1.7-8.2); BASOPHILS % (AUTO) 0.6 % (0-2); EOSINOPHILS % (AUTO) 13.1 % (0-6); HEMATOCRIT 36.4 % (36.0-47.0); HEMOGLOBIN 12.5 g/dL (12.0-15.5); LYMPHOCYTES % (AUTO) 24.7 % (13-45); MEAN CORPUSCULAR HEMOGLOBIN 29.8 pg (27.0-33.4); MEAN CORPUSCULAR HGB CONC 34.5 g/dL (32.0-36.0); MEAN CORPUSCULAR VOLUME 86 fl (80-97); MONOCYTES % (AUTO) 3.7 % (3-13); PLATELET COUNT 289 10^3/uL (150-450); RED BLOOD COUNT 4.21 10^6/uL (3.72-5.28); RED CELL DISTRIBUTION WIDTH 13.3 % (11.5-14.0); SEGMENTED NEUTROPHILS % (AUTO) 57.9 % (42-78); TOTAL CELLS COUNTED % (AUTO) 100 %
[2019-03-11 16:11] LABS: APPEARANCE,URINE SLIGHTLY-CLOUDY; BILIRUBIN,URINE NEGATIVE (NEGATIVE); COLOR,URINE YELLOW; GLUCOSE, URINE NEGATIVE (NEGATIVE); KETONES,URINE NEGATIVE (NEGATIVE); PROTEIN,URINE NEGATIVE (NEGATIVE)
[2019-03-11 16:16] LABS: ANION GAP 10 (5-19); BLOOD UREA NITROGEN 15 mg/dL (7-20); CALCIUM 9.5 mg/dL (8.4-10.2); CARBON DIOXIDE 27 mmol/L (22-30); CHLORIDE 106 mmol/L (98-107); GLUCOSE 105 mg/dL (75-110); POTASSIUM 4.1 mmol/L (3.6-5.0)
[2019-03-11 17:28] VITALS: BP 100/58
== END 2019-03-11 17:29 | disposition home or self-care (01) ==
LOC: ER 15:30
DX: N93.8 Other specified abnormal uterine and vaginal bleeding (principal); R42 Dizziness and giddiness; Z88.0 Allergy status to penicillin
CPT/HCPCS: 36415; 80048; 81001; 84703; 85025; 87086

== ENCOUNTER 2019-11-18 12:58 | Emergency (ER) | payer MEDICAID, OTHER ==
--- NOTE | 2019-11-18 14:00 | RADIOLOGY REPORT (SQ) ---
EXAM DESCRIPTION: ANKLE RIGHT COMPLETE IMAGES COMPLETED DATE/TIME: 11/18/2019 1:32 pm REASON FOR STUDY: pain/swelling COMPARISON: None. NUMBER OF VIEWS: Three views. TECHNIQUE: AP, lateral, and oblique radiographic images acquired of the right ankle. LIMITATIONS: None. FINDINGS: MINERALIZATION: Normal. BONES: No acute fracture or dislocation. No worrisome bone lesions. SOFT TISSUES: Mild diffuse soft tissue swelling. No radiopaque foreign body. IMPRESSION: Mild diffuse soft tissue swelling at the right ankle. No radiographic evidence for acut e fracture. TECHNICAL DOCUMENTATION: JOB ID: [id number] 2010 [employer]- All Rights Reserved Reading location - IP/workstation name: [email or web address]
--- NOTE | 2019-11-18 14:03 | RADIOLOGY REPORT (SQ) ---
EXAM DESCRIPTION: FOOT RIGHT COMPLETE IMAGES COMPLETED DATE/TIME: 11/18/2019 1:32 pm REASON FOR STUDY: pain/swelling COMPARISON: None. NUMBER OF VIEWS: Three views. TECHNIQUE: AP, lateral and oblique radiographic images acquired of the right foot. LIMITATIONS: None. FINDINGS: MINERALIZATION: Normal. BONES: No acute fracture or dislocation. No worrisome bone lesions. SOFT TISSUES: Mild soft tissue swelling at the dorsum of the foot. No radiopaque foreign body. IMPRESSION: Mild soft tissue swelling at the dorsum of the right foot. No radiographic evidence for acute fracture. TECHNICAL DOCUMENTATION: JOB ID: [id number] 2010 [employer]- All Rights Reserved Reading location - IP/workstation name: [email or web address]
--- NOTE | 2019-11-18 15:36 | ER Document Report ---
HPI - HPI Time Seen by Provider: 11/18/19 13:08 Notes: 24-year-old female patient presents with redness and swelling to her right foot and ankle. She states this started yesterday. She denies any injury to the area. She said it is painful to the touch. She denies any fever or chills. - ROS Systems Reviewed and Negative: Yes All other systems reviewed and negative - CONSTITUTIONAL Constitutional: DENIES: Fever - REPRODUCTIVE Reproductive: DENIES: : - MUSCULOSKELETAL Musculoskeletal: REPORTS: Extremity pain, Swelling Past Medical History - General Information source: Patient - Social History Smoking Status: Never Smoker Frequency of alcohol use: None Drug Abuse: None Family History: None - Medical History Medical History: Negative Renal/ Medical History: Denies: Hx Peritoneal Dialysis Surgical Hx: Negative - Immunizations Immunizations up to date: Yes Hx Diphtheria, Pertussis, Tetanus Vaccination: Yes Vertical Provider Document - CONSTITUTIONAL Notes: PHYSICAL EXAMINATION: GENERAL: Well-appearing, well-nourished and in no acute distress. HEAD: Atraumatic, normocephalic. EYES: Pupils equal round extraocular movements intact, conjunctiva are normal. ENT: Nares patent NECK: Normal range of motion LUNGS: No respiratory distress Musculoskeletal: Erythema and swelling noted to right foot and ankle. Strong dorsalis pedis pulse palpated. Cap refill less than 3 seconds. Tender to slight touch. No obvious deformity noted. NEUROLOGICAL: Normal speech, normal gait. PSYCH: Normal mood, normal affect. SKIN: Warm, Dry, normal turgor, no rashes or lesions noted. - INFECTION CONTROL TRAVEL OUTSIDE OF THE [place] IN LAST 30 DAYS: No Course - Re-evaluation Re-evalutation: X-rays were negative. Discussed case with attending physician. Differentials include cellulitis versus gout. Patient does have a few areas of like they may be small insect bites, this could have led to some cellulitis. Will start patient on Indocin as well as antibiotics. Patient will return to the emergency department with any worsening symptoms that she has no primary care follow-up. Patient verbalized understanding and agreement with plan. - Vital Signs Vital signs: Temp Pulse Resp BP Pulse Ox 98.5 F 79 16 101/72 100 11/18/19 13:02 11/18/19 13:02 11/18/19 13:02 11/18/19 13:02 11/18/19 13:02 Discharge - Discharge Clinical Impression: Cellulitis Qualifiers: Site of cellulitis: unspecified site Qualified Code(s): L03.90 - Cellulitis, unspecified Gout Qualifiers: Gout site: ankle Gout etiology: unspecified cause Chronicity: acute Laterality: right Qualified Code(s): M10.9 - Gout, unspecified Condition: Stable Disposition: HOME, SELF-CARE Additional Instructions: The x-rays were negative for any fracture or dislocation. There is soft tissue swelling in the ankle and foot. This may be an early cellulitis or gout flareup. We will treat you for both. If you worsen in any way, the redness spreads, you start vomiting, your pain significantly increases please return to the emergency department at once Prescriptions: Clindamycin HCl [Cleocin 150 mg Capsule] 300 mg PO TID #42 capsule Indomethacin [Indocin 50 Mg Capsule] 50 mg PO TID #12 capsule Referrals: SAYDA VELAZQUEZ PA-C [PHYSICIAN APPLICATION DEVELOPER] - Follow up as needed
--- NOTE | 2019-11-18 15:36 | ER Document Report ---
Doctor's Note Notes: 11/18/19 15:34 Patient seen in conjunction with the nurse practitioner, please see her note to correlate with mine. In short this is a 24-year-old female who developed redness, swelling, and pain in her right ankle. It was atraumatic. It developed over the last 24 hours. She has no systemic symptoms. She denies any injury. On exam she has diffuse edema and swelling over her ankle, which travels down into the dorsum of her foot. She has no significant bony tenderness. She has significant tenderness to light touch. There is calor associated. She exhibits poor hygiene, with extensive dirt on the sole of her feet. She has some superficial scratches noted over the medial aspect of the ankle. X-rays are unremarkable with the exception of some soft tissue swelling. Differential on this is wide at this time. Certainly this is a young female for primary gout, but given her presentation we will cover her with strong anti- inflammatories. We will also cover her for cellulitis. She is to follow-up closely, she is given a list of symptoms which should prompt her make immediate return, including but not limited to increased redness, pain, swelling, fevers, vomiting.
[2019-11-18 15:46] VITALS: BP 110/69
== END 2019-11-18 15:44 | disposition home or self-care (01) ==
LOC: ER 12:58
DX: L03.90 Cellulitis, unspecified (principal); M10.9 Gout, unspecified
CPT/HCPCS: 99283

== ENCOUNTER 2020-04-04 22:28 | Emergency (ER) | payer SELFPAY ==
[2020-04-04 22:55] VITALS: BP 117/79
[2020-04-04] MEDS ORDERED: FAMOTIDINE 20 MG TABLET PO ONE (23:19)
[2020-04-04] MEDS ORDERED: PREDNISONE 20 MG TABLET PO ONE (23:19)
--- NOTE | 2020-04-04 23:20 | ER Document Report ---
HPI - HPI Patient complains to provider of: rash Time Seen by Provider: 04/04/20 23:11 Pain Level: 0 Notes: 25 year old female to the ED with C/O a rash to bilateral legs that has gotten worse over the night. She states that she has been getting hives nearly daily for the past six months. Usually she takes benadryl and they improve. Tonight, she took two benadryl and it did not improve so she decided to come to the ER. She states that the rash if very itchy. States that she has not had chest pain, SOB, sensation of throat closing tonight, but in the past she will have those symptoms. SHe states in her childhood, she had hives like this often. States that her physician could never figure out why she was getting the hives. She even when to an [employer] and they could not find a good reason. States she has no allergies to food. States she has not changed any lotions, soaps, detergent, or any other household goods. - ROS Systems Reviewed and Negative: Yes All other systems reviewed and negative - CONSTITUTIONAL Constitutional: DENIES: Fever, Chills - EENT EENT: DENIES: Sore Throat, Ear Pain, Congestion - NEURO Neurology: DENIES: Headache, Weakness, Vision blurred, Dizzinesss / Vertigo - CARDIOVASCULAR Cardiovascular: DENIES: Chest pain - RESPIRATORY Respiratory: DENIES: Trouble Breathing, Coughing - GASTROINTESTINAL Gastrointestinal: DENIES: Abdominal Pain, Nausea, Patient vomiting, Diarrhea - URINARY Urinary: DENIES: Dysuria - REPRODUCTIVE LMP: 03/25 Reproductive: DENIES: : - MUSCULOSKELETAL Musculoskeletal: DENIES: Extremity pain, Back Pain, Neck Pain, Swelling - DERM Skin Color: Normal Skin Problems: Rash - see HPI Past Medical History - General Information source: Patient - Social History Smoking Status: Never Smoker Chew tobacco use (# tins/day): No Frequency of alcohol use: None Drug Abuse: None Family History: None Renal/ Medical History: Denies: Hx Peritoneal Dialysis - Immunizations Immunizations up to date: Yes Hx Diphtheria, Pertussis, Tetanus Vaccination: Yes Vertical Provider Document - CONSTITUTIONAL Agree With Documented VS: Yes Exam Limitations: No Limitations General Appearance: WD/WN, No Apparent Distress - INFECTION CONTROL TRAVEL OUTSIDE OF THE [place] IN LAST 30 DAYS: No - HEENT HEENT: Atraumatic, Normocephalic, PERRLA Notes: airway is grossly patent. There is no lip swelling, tongue swelling, uvular swelling. no voice change. handling oral secretions with ease. no neck swelling. - NECK Neck: Normal Inspection, Supple - RESPIRATORY Respiratory: Breath Sounds Normal, No Respiratory Distress. negative: Rales, Rhonchi, Wheezing - CARDIOVASCULAR Cardiovascular: Regular Rate, Regular Rhythm, No Murmur - GI/ABDOMEN Gastrointestinal: Abdomen Soft, Abdomen Non-Tender, No Organomegaly - BACK Back: Normal Inspection - MUSCULOSKELETAL/EXTREMETIES Musculoskeletal/Extremeties: MAEW, FROM, Non-Tender - NEURO Level of Consciousness: Awake, Alert, Appropriate - DERM Integumentary: Warm, Rash - there is a rash to bilateral legs. IT is erythematous and has wheals, most indicative of urticaria. there are no vesicles, open wounds, superimposed infection, areas of necrosis, or skin sloughing. No evidence for erythema multiform. non tender to palpation. Noted excoriations. Course - Re-evaluation Re-evalutation: IMpression: URticaria. Gave the patient prednisone and pepcid and her urticaria are improving and going away. Will have her follow with dermatology. Will send home with steroid taper, pepcid, hydroxyzine, and an epi pen. Educated on when and how to use Epipen and instructed that if she used it, she should present to the ER immediately after giving it to herself. She agrees with the plan. - Vital Signs Vital signs: Temp Pulse Resp BP Pulse Ox 97.6 F 68 20 117/79 100 04/04/20 22:53 04/04/20 22:53 04/04/20 22:53 04/04/20 22:53 04/04/20 22:53 Discharge - Discharge Clinical Impression: Hives Condition: Stable Disposition: HOME, SELF-CARE Instructions: Acute Urticaria ([facility]) Additional Instructions: Take medicines as prescribed. Please follow-up with a milk collector for further evaluation for your frequent hives. Should you have worsening symptoms such as significant shortness of breath chest pain or feeling lightheaded please use the EpiPen prescribed to you. Return if you have worsening symptoms. Prescriptions: Prednisone [Deltasone 10 mg Tablet] 10 mg PO ASDIR PRN #21 tablet PRN Reason: Epinephrine [Epipen] 0.3 mg IJ PRN PRN #1 auto.injct PRN Reason: Hydroxyzine Pamoate 25 mg PO Q8 #20 capsule Famotidine [Pepcid 20 mg Tablet] 20 mg PO DAILY #12 tablet Referrals: CATHY WALDRON NP [Primary Care Provider] - Follow up in 1 week NICO NATHAN DO [ACTIVE STAFF] - Follow up in 1 week (for dermatology follow up)
== END 2020-04-05 00:02 | disposition home or self-care (01) ==
LOC: ER 22:28
DX: L50.9 Urticaria, unspecified (principal)
CPT/HCPCS: 99283; J7512